=== PATIENT | male | born 1995 | race Caucasian/White ===

== ENCOUNTER 2017-10-28 08:36 | Emergency (ER) | payer OTHER ==
[2017-10-28] MEDS ORDERED: Ibuprofen TAB* 600 MG PO ONE (10:22)
--- NOTE | 2017-10-28 10:34 | UC ---
Throat Pain/Nasal Sourav HPI - HPI Summary HPI Summary: 1. ONSET OF ST, PAIN WITH SWALLOWING AND SWOLLEN LYMPH NODES YESTERDAY. PAIN RADIATES TO LEFT EAR. NO FEVER, NO COUGH OR CONGESTION. 2. LEFT WRIST PAIN THAT STARTED YESTERDAY WHILE TYPING. NO UNUSUAL ACTIVITY OR TRAUMA. 3. BOTTOM OF RIGHT FOOT HAS BEEN HURTING FOR ABOUT 3 DAYS. WORSE IN THE MORNING AND WITH WALKING. FEELS BETTER AFTER STRETCHING. HAS BEEN TAKING ACCUTANE FOR ABOUT 4 MONTHS. CALLED DERMATOLOGY AND WAS TOLD HIS SX WERE UNLIKELY DUE TO THIS MEDICATION. - History of Current Complaint Chief Complaint: UCRespiratory Stated Complaint: SORE THROAT, WRIST AND ANKLE PAIN Time Seen by Provider: 10/28/17 10:00 Hx Obtained From: Patient Onset/Duration: Sudden Onset, Lasting Days - 1 DAY, Still Present Severity: Moderate Pain Intensity: 6 Pain Scale Used: 0-10 Numeric Cough: None Associated Signs & Symptoms: Negative: Fever - Allergies/Home Medications Allergies/Adverse Reactions: Allergies Allergy/AdvReac Type Severity Reaction Status Date / Time No Known Allergies Allergy Verified 10/28/17 08:46 Home Medications: Home Medications Accutane 1 tab PO 10/28/17 [History] PMH/Surg Hx/FS Hx/Imm Hx - Additional Past Medical History Additional PMH: ACNE - Surgical History Surgical History: None - Family History Known Family History: Negative: Hypertension - Social History Alcohol Use: Weekly Substance Use Type: None Smoking Status (MU): Never Smoked Tobacco Review of Systems Constitutional: Negative ENT: Sore Throat, Ear Ache Respiratory: Negative Cardiovascular: Negative Gastrointestinal: Negative Musculoskeletal: Arthralgia, Decreased ROM - LEFT WRIST All Other Systems Reviewed And Are Negative: Yes Physical Exam Triage Information Reviewed: Yes Appearance: Well-Appearing, No Pain Distress, Well-Nourished Vital Signs: Initial Vital Signs Temp 98.1 F 10/28/17 08:41 Pulse 86 10/28/17 08:41 Resp 18 10/28/17 08:41 BP 111/71 10/28/17 08:41 Pulse Ox 99 10/28/17 08:41 Vital Signs Reviewed: Yes Eyes: Positive: Conjunctiva Clear ENT: Positive: Hearing grossly normal, Pharynx normal, TMs normal, Tonsillar swelling, Muffled voice. Negative: Tonsillar exudate Neck: Positive: Supple, Tenderness @ - SPFL CERVICAL LAD, Enlarged Nodes @ - SPFL CERVICAL LAD Respiratory Exam: Normal Cardiovascular Exam: Normal Abdomen Description: Positive: Soft Musculoskeletal: Positive: No Edema, ROM Limited @ - LEFT WRIST, Other: - LEFT WRIST ERYTHEMA AND TENDERNESS OVER ULNAR STYLOID PROCESS. WARM TO TOUCH. TTP RIGHT PLANTAR FASCIA Neurological: Positive: Alert Psychological: Positive: Age Appropriate Behavior Skin: Negative: rashes Diagnostics - Laboratory Diagnostic Studies Completed/Ordered: STREP NEG - Radiology LEFT WRIST XRAY Xray Interpretation: Positive (See Comments) - Ulnar aspect soft tissue swelling without additional finding. Potential etiologies would include extensor carpi ulnaris tendon pathology. Radiology Interpretation Completed By: Radiologist Throat Pain/Nasal Course/Dx - Differential Dx/Diagnosis Provider Diagnoses: 1. ACUTE PHARYNGITIS. 2. LEFT WRIST TENDONITIS. 3. RIGHT FOOT PLANTAR FASCIITIS Discharge - Sign-Out/Discharge Documenting (check all that apply): Discharge/Admit/Transfer - Discharge Plan Condition: Stable Disposition: HOME Prescriptions: Magic Mouth Was-LEONARDO/MAAL/LIDO* 5 - 10 ml SWISH SWAL QID PRN #150 ml PRN Reason: Sore Throat Patient Education Materials: Plantar Fasciitis Exercises (GEN), Pharyngitis (ED ), Plantar Fasciitis (ED), Tendinitis (ED) Referrals: [facility] - Audie DAVIDSON [Medical Doctor] - If Needed Luisa Hunt MD [Medical Doctor] - 1 Week Additional Instructions: STREP TEST TODAY NEGATIVE. LIKELY VIRAL ETIOLOGY OF YOUR SORE THROAT. REST, HYDRATE, OTC MEDS NEEDED FOR DISCOMFORT. RX FOR MAGIC MOUTHWASH PROVIDED TO HELP WITH DISCOMFORT. NO INDICATION FOR ANTIBIOTICS AT PRESENT. X-RAY OF YOUR LEFT WRIST SHOWS ULNAR ASPECT SOFT TISSUE SWELLING WITHOUT ADDITIONAL FINDING. POTENTIAL ETIOLOGIES WOULD INCLUDE EXTENSOR CARPI ULNARIS TENDON PATHOLOGY. WEAR THE SPLINT AT NIGHT AND DURING THE DAY ABLE. IF YOUR SYMPTOMS ARE NOT IMPROVING FOLLOW-UP WITH ORTHOPEDICS FOR FURTHER EVALUATION. [id number] ANTI-INFLAMMATORIES NEEDED FOR PAIN. FOR YOUR RIGHT FOOT PLANTAR FASCIITIS BE SURE TO STRETCH BEFORE AND AFTER WORKING OUT AND USE MASSAGE REGULARLY TO KEEP THE TISSUES FROM TIGHTENING UP. - Billing Disposition and Condition Condition: STABLE Disposition: HOME
[2017-10-28 10:48] VITALS: BP 117/45
--- NOTE | 2017-10-28 11:08 | RAD ---
INDICATION: Pain and redness at the LEFT ulnar styloid without proceeding injury. COMPARISON: No relevant prior exams available on the [facility] PACS for comparison. TECHNIQUE: AP, lateral, and oblique views LEFT wrist. REPORT: Normal articular alignment and preserved joint spaces. Negative for fracture or focal osseous lesion. Negative for osseous erosions. Mild soft tissue swelling superficial to the ulnar styloid. No subcutaneous emphysema or conspicuous foreign body. IMPRESSION: Ulnar aspect soft tissue swelling without additional finding. Potential etiologies would include extensor carpi ulnaris tendon pathology.
== END 2017-10-28 11:45 | disposition home or self-care (01) ==
LOC: UCEAST 08:36
DX: J02.9 Acute pharyngitis, unspecified (principal); M65.849 Other synovitis and tenosynovitis, unspecified hand; M72.2 Plantar fascial fibromatosis; L70.9 Acne, unspecified
CPT/HCPCS: 87651; 99213; A9270-GY; G0463

== ENCOUNTER 2017-10-29 08:32 | Emergency (ER) | payer OTHER ==
[2017-10-29 08:45] VITALS: BP 134/64
--- NOTE | 2017-10-29 09:32 | ED ---
Complex/Multi-Sys Presentation - HPI Summary HPI Summary: Pt. is a 22 y.o male who presents to the ER for numerous complaints that have been present x several days. Pt. was seen at urgent care yesterday for the same complaints. He presents to ER today because his symptoms are more constant. Pt. c/o a sore throat and nasal congestion. Denies fever, chills, cough, abd. pain, N/V/D. He also notes that he has been having pain to her left wrist and right foot x several days as well. He notes that he lifts and runs on a regular basis. He does not recall any injuries or falls. Pain is improved with motrin. Walking and using extremities makes symptoms worse. Rest makes symptoms better. He was given a velcro wrist splint yesterday and states that it is helping with pain. Foot pain is worse in the morning and when first walking. He denies recent rashes or tick bites. He otherwise denies past medical history. Symptoms are mild in severity. Negative strep test yesterday. - History Of Current Complaint Chief Complaint: EDGeneral Time Seen by Provider: 10/29/17 08:50 - Allergies/Home Medications Allergies/Adverse Reactions: Allergies Allergy/AdvReac Type Severity Reaction Status Date / Time No Known Allergies Allergy Verified 10/28/17 08:46 Home Medications: Home Medications Isotretinoin [Myorisan] 30 mg PO BID 10/29/17 [History Confirmed 10/29/17] PMH/Surg Hx/FS Hx/Imm Hx Previously Healthy: Yes Infectious Disease History: No Infectious Disease History: Denies: Traveled Outside the [place] in Last 30 Days - Family History Known Family History: Negative: Hypertension - Social History Occupation: Student Alcohol Use: Weekly Substance Use Type: Reports: None Smoking Status (MU): Never Smoked Tobacco Review of Systems Constitutional: Negative Negative: Fever, Chills Positive: Sore Throat, Nasal Discharge Cardiovascular: Negative Negative: Chest Pain Respiratory: Negative Negative: Shortness Of Breath, Cough Gastrointestinal: Negative Negative: Abdominal Pain, Vomiting, Diarrhea, Nausea Genitourinary: Negative Positive: Other - Left wrist pain, right foot pain. Skin: Negative Neurological: Negative All Other Systems Reviewed And Are Negative: Yes Physical Exam Triage Information Reviewed: Yes Vital Signs On Initial Exam: Initial Vitals Temp Pulse Resp BP Pulse Ox 99.1 F 82 15 134/64 100 0502/18 08:42 10/29/17 08:42 10/29/17 08:42 10/29/17 08:42 10/29/17 08:42 Vital Signs Reviewed: Yes Appearance: Positive: Well-Appearing - Pt. sitting on bed in NAD. Pleasant. Skin: Positive: Warm, Dry Head/Face: Positive: Normal Head/Face Inspection ENT: Positive: Other - Oropharynx is mildly injected with mild bilateral tonsillar edema. No exudates. Uvula is midline with no deviation. TMs are unremarkable bilaterally. Neck: Positive: Supple, Nontender, No Lymphadenopathy. Negative: Nuchal Rigidity Respiratory/Lung Sounds: Positive: Clear to Auscultation, Breath Sounds Present Cardiovascular: Positive: Normal, RRR Musculoskeletal: Positive: Other - Left arm and right leg are neurovascularly intact. No bony tenderness noted to the right foot. Pain to the urgent foot with dorsiflexion. No wounds, edema or ecchymosis. No proximal pain. Mild pain to left wrist with ROM. No edema or ecchymosis. Diagnostics - Vital Signs Vital Signs Temp Pulse Resp BP Pulse Ox 10/29/17 08:42 99.1 F 82 15 134/64 100 - Laboratory Lab Statement: Any lab studies that have been ordered have been reviewed, and results considered in the medical decision making process. Complex Multi-Symp Course/Dx Course Of Treatment: Pt. presenting to the ER for the above symptoms. He is afebrile and well appearing. Susptect viral etiology for pt.'s sore throat and sinus congestion. His left wrist pain is consistent with tendinitis, we'll have him continue wearing cockup splint. Right foot pain suspect plantar fasciitis. He has no bony tenderness on exam and no x-rays were obtained today. Pt. requesting splint for right foot. Post op shoe placed. Advised NSAIDS for pain. To ice and elevate. Activity as tolerated. To f.u with health center and return to ER if sxs change or worsen. Pt. understands and agrees with plan. - Diagnoses Differential Diagnoses/HQI/PQRI: Other - Tendinitis, sprain, pharyngitis, URI, viral syndrome Provider Diagnoses: Upper respiratory infection, Tendonitis, Achilles tendinitis Discharge - Sign-Out/Discharge Documenting (check all that apply): Discharge/Admit/Transfer - Discharge Plan Condition: Good Disposition: HOME Patient Education Materials: Plantar Fasciitis (ED), Upper Respiratory Infection (ED), Tendinitis (ED) Referrals: [facility] - Audie DAVIDSON [Primary Care Provider] - Additional Instructions: Follow up with the [facility] Ice and elevate Can take 800mg of Motrin every 8 hours x 1 week for pain Increase fluids and rest Return to ER if symptoms change or worsen - Billing Disposition and Condition Condition: GOOD Disposition: HOME
== END 2017-10-29 09:29 | disposition home or self-care (01) ==
LOC: ED 08:32
DX: J06.9 Acute upper respiratory infection, unspecified (principal); M76.61 Achilles tendinitis, right leg
CPT/HCPCS: 99282

== ENCOUNTER 2017-10-30 12:27 | Inpatient (IN) | payer OTHER ==
[2017-10-30] MEDS ORDERED: Morphine INJ* 10 MG/ML 1 ML CARPUJECT IV ONE (12:33)
[2017-10-30] MEDS ORDERED: Ondansetron INJ* 2 MG/ML VIAL IV ONE (12:34)
[2017-10-30] MEDS ORDERED: Ondansetron ODT TAB* 4 MG ONE (12:42)
[2017-10-30] MEDS ORDERED: Morphine VIAL* 4 MG/ML VIAL (1 ml vial) IV ONE (12:43)
[2017-10-30] MEDS ORDERED: Ammonia Inhalant* 1 EA AMP ONE (12:47)
[2017-10-30] MEDS ORDERED: Ondansetron ODT TAB* 4 MG PO ONE (12:54)
[2017-10-30 13:00] LABS: Hematocrit 40 % (42-52); Hemoglobin 13.7 g/dl (14.0-18.0); Mean Corpuscular HGB Conc 34 g/dl (31-36); Mean Corpuscular Hemoglobin 31 pg (27-31); Mean Corpuscular Volume 91 fL (80-94); Mean Platelet Volume 7.7 um3 (7.4-10.4); Platelet Count 264 10^3/ul (150-450); Red Blood Count 4.44 10^6/ul (4.0-5.4); Red Cell Distribution Width 13 % (10.5-15); White Blood Count 12.1 10^3/ul (3.5-10.8)
[2017-10-30] MEDS ORDERED: Ketorolac INJ* 30 MG/ML 1 ML VIAL IV PUSH ONE (13:08)
[2017-10-30] MEDS ORDERED: Lidocaine 1%* 5 ML VIAL ONE (13:13)
[2017-10-30 13:22] LABS: ABS Basophils 0.1 10^3/ul (0-0.2); ABS Eosinophils 0 10^3/ul (0-0.6); ABS Lymphocytes 1.9 10^3/ul (1.0-4.8); ABS Monocytes 1.7 10^3/ul (0-0.8); ABS Neutrophils 8.4 10^3/ul (1.5-7.7); ABS Nucleated RBC 0 10^3/ul; Eosinophil % 0.2 % (0-6); Lymphocyte % 15.8 % (25-47); Nucleated Red Blood Cells % 0
--- NOTE | 2017-10-30 15:40 | ED ---
Lower Extremity - HPI Summary HPI Summary: Patient is an otherwise healthy 22-year-old male presenting to the ED with chief complaint of right medial ankle pain. He states his symptoms began Friday evening after finishing work he endorsed medial ankle pain with chills. He states Friday he was able to walk, but was limping due to pain. He also endorses right neck pain without stiffness which has since dissipated. On Friday his symptoms worsened and he began to endorse left wrist pain and difficulty swallowing. He was seen at the urgent care and was tested for strep which was negative. On Friday, the following day he had worsening ankle pain with inability to bear weight but the wrist pain improved. Following day on Friday he endorses 10/10 pain and was seen in the ED. He was discharged home stating to elevate and ice it. He then went to [facility] several hours later due to worsening pain and they stated the same. Today he returns with 10 out of 10 pain, worst of life and is unable to bear weight. The area is slightly swollen, erythematous and warm to the medial ankle. History of bursitis to the right ankle 2 years ago which had improved with Aleve. He has been taking NSAIDs for the past 4 days without any relief of symptoms. History of GI infection 1 month ago. Low risk for STDs as he was tested one month ago and has had 1 partner since that time. Denies any tick bites or history of Lyme disease. Denies any history of STDs. Denies any family history of mono or polyarthritis or personal history of such. - History of Current Complaint Hx Obtained From: Patient Mechanism Of Injury: Other - no injury Onset of Pain: Immediate Onset/Duration: Days Severity Initially: Severe Severity Currently: Severe Pain Intensity: 10 Pain Scale Used: 0-10 Numeric Timing: Constant Location: Is Discrete @ - medial R ankle Associated Signs And Symptoms: Positive: Swelling, Redness Aggravating Factor(s): Standing, Ambulation Alleviating Factor(s): Rest Able to Bear Weight: No - Risk Factors Gout Risk Factors: Male DVT Risk Factors: Negative Septic Arthritis Risk Factor: Negative <Julissa Montes De Oca - Last Filed: 10/30/17 15:50> <Mark Marquis - Last Filed: 10/30/17 18:44> - History of Current Complaint Chief Complaint: EDExtremityLower Stated Complaint: RT FOOT PAIN Time Seen by Provider: 10/30/17 12:37 - Allergies/Home Medications Allergies/Adverse Reactions: Allergies Allergy/AdvReac Type Severity Reaction Status Date / Time No Known Allergies Allergy Verified 10/28/17 08:46 PMH/Surg Hx/FS Hx/Imm Hx Previously Healthy: Yes - Immunization History Hx Pertussis Vaccination: No Immunizations Up to Date: Unable to Obtain/Confirm Infectious Disease History: No Infectious Disease History: Denies: Traveled Outside the [place] in Last 30 Days - Family History Known Family History: Negative: Hypertension - Social History Occupation: Unemployed Lives: With Family Alcohol Use: Weekly Hx Substance Use: No Substance Use Type: Reports: None Hx Tobacco Use: No Smoking Status (MU): Never Smoked Tobacco <Julissa Montes De Oca - Last Filed: 10/30/17 15:50> Review of Systems Constitutional: Negative Negative: Fever, Chills, Fatigue, Skin Diaphoresis Eyes: Negative Cardiovascular: Negative Negative: Shortness Of Breath, Cough Negative: Abdominal Pain, Vomiting, Diarrhea, Nausea Genitourinary: Negative Positive: no symptoms reported, see HPI Positive: Arthralgia, Myalgia Positive: Other - erythema and warmth Neurological: Negative All Other Systems Reviewed And Are Negative: Yes <Julissa Montes De Oca - Last Filed: 10/30/17 15:50> Physical Exam Triage Information Reviewed: Yes Vital Signs On Initial Exam: Initial Vitals Temp Pulse Resp BP Pulse Ox 98.9 F 81 18 140/65 96 10/30/17 12:41 10/30/17 12:41 10/30/17 12:41 10/30/17 12:41 10/30/17 12:41 Vital Signs Reviewed: Yes Appearance: Positive: Well-Appearing, Well-Nourished Skin: Positive: Warm, Skin Color Reflects Adequate Perfusion, Other - erythema and warmth to the medial R ankle Head/Face: Positive: Normal Head/Face Inspection Neck: Positive: Supple, No Lymphadenopathy Respiratory/Lung Sounds: Positive: Clear to Auscultation, Breath Sounds Present Cardiovascular: Positive: Normal, RRR, Pulses are Symmetrical in both Upper and Lower Extremities Musculoskeletal: Positive: Limited @ - Plantarflexion and dorsiflexion d/t pain Neurological: Positive: Sensory/Motor Intact, Alert, Oriented to Person Place, Time, Speech Normal Psychiatric: Positive: Normal, Affect/Mood Appropriate AVPU Assessment: Alert <Julissa Montes De Oca Rm - Last Filed: 10/30/17 15:50> Vital Signs On Initial Exam: Initial Vitals Temp Pulse Resp BP Pulse Ox 98.9 F 81 18 140/65 96 10/30/17 12:41 10/30/17 12:41 10/30/17 12:41 10/30/17 12:41 10/30/17 12:41 <Mark Marquis - Last Filed: 10/30/17 18:44> Diagnostics - Vital Signs Vital Signs Temp Pulse Resp BP Pulse Ox 10/30/17 13:26 80 131/63 97 10/30/17 13:00 73 96 10/30/17 12:56 74 131/69 99 10/30/17 12:54 18 10/30/17 12:41 98.9 F 81 18 140/65 96 - Laboratory Lab Results: Lab Results 10/30/17 10/30/17 10/30/17 Range/Units 12:51 12:51 13:30 WBC 12.1 H (3.5-10.8) 10^3/ul RBC 4.44 (4.0-5.4) 10^6/ul Hgb 13.7 L (14.0-18.0) g/dl Hct 40 L (42-52) % MCV 91 (80-94) fL MCH 31 (27-31) pg MCHC 34 (31-36) g/dl RDW 13 (10.5-15) % Plt Count 264 (150-450) 10^3/ul MPV 7.7 (7.4-10.4) um3 Neut % (Auto) 69.5 (38-83) % Lymph % (Auto) 15.8 L (25-47) % [place] % (Auto) 13.7 H (0-7) % Eos % (Auto) 0.2 (0-6) % Baso % (Auto) 0.8 (0-2) % Absolute Neuts (auto) 8.4 H (1.5-7.7) 10^3/ul Absolute Lymphs (auto) 1.9 (1.0-4.8) 10^3/ul Absolute Monos (auto) 1.7 H (0-0.8) 10^3/ul Absolute Eos (auto) 0 (0-0.6) 10^3/ul Absolute Basos (auto) 0.1 (0-0.2) 10^3/ul Absolute Nucleated RBC 0 10^3/ul Nucleated RBC % 0 Sodium 139 (139-145) mmol/L Potassium 3.4 L (3.5-5.0) mmol/L Chloride 100 L (101-111) mmol/L Carbon Dioxide 29 (22-32) mmol/L Anion Gap 10 (2-11) mmol/L BUN 21 (6-24) mg/dL Creatinine 1.04 (0.67-1.17) mg/dL Est GFR ( Amer) 117.1 (>60) Est GFR (Non-Af Amer) 91.0 (>60) BUN/Creatinine Ratio 20.2 H (8-20) Glucose 95 (70-100) mg/dL Calcium 9.7 (8.6-10.3) mg/dL Total Bilirubin 0.40 (0.2-1.0) mg/dL AST 20 (13-39) U/L ALT 16 (7-52) U/L Alkaline Phosphatase 59 (34-104) U/L Total Protein 8.1 (6.4-8.9) g/dL Albumin 4.2 (3.2-5.2) g/dL Globulin 3.9 (2-4) g/dL Albumin/Globulin Ratio 1.1 (1-3) Fluid Source Synovial fluid Fluid Volume 4 mL Fluid Color Red Fluid Appearance Bloody Fluid WBC TNP Fluid RBC TNP Fluid Tot Cell Count 100 Fluid Neutrophils 94 % Fluid Lymphocytes 1 % Fluid Monocytes 5 % Fluid Cell Count Rvw By Pending Fluid Crystals (None Seen) Fluid Comment 10/30/17 Range/Units 13:30 WBC (3.5-10.8) 10^3/ul RBC (4.0-5.4) 10^6/ul Hgb (14.0-18.0) g/dl Hct (42-52) % MCV (80-94) fL MCH (27-31) pg MCHC (31-36) g/dl RDW (10.5-15) % Plt Count (150-450) 10^3/ul MPV (7.4-10.4) um3 Neut % (Auto) (38-83) % Lymph % (Auto) (25-47) % [place] % (Auto) (0-7) % Eos % (Auto) (0-6) % Baso % (Auto) (0-2) % Absolute Neuts (auto) (1.5-7.7) 10^3/ul Absolute Lymphs (auto) (1.0-4.8) 10^3/ul Absolute Monos (auto) (0-0.8) 10^3/ul Absolute Eos (auto) (0-0.6) 10^3/ul Absolute Basos (auto) (0-0.2) 10^3/ul Absolute Nucleated RBC 10^3/ul Nucleated RBC % Sodium (139-145) mmol/L Potassium (3.5-5.0) mmol/L Chloride (101-111) mmol/L Carbon Dioxide (22-32) mmol/L Anion Gap (2-11) mmol/L BUN (6-24) mg/dL Creatinine (0.67-1.17) mg/dL Est GFR ( Amer) (>60) Est GFR (Non-Af Amer) (>60) BUN/Creatinine Ratio (8-20) Glucose (70-100) mg/dL Calcium (8.6-10.3) mg/dL Total Bilirubin (0.2-1.0) mg/dL AST (13-39) U/L ALT (7-52) U/L Alkaline Phosphatase (34-104) U/L Total Protein (6.4-8.9) g/dL Albumin (3.2-5.2) g/dL Globulin (2-4) g/dL Albumin/Globulin Ratio (1-3) Fluid Source Fluid Volume mL Fluid Color Fluid Appearance Fluid WBC Fluid RBC Fluid Tot Cell Count Fluid Neutrophils % Fluid Lymphocytes % Fluid Monocytes % Fluid Cell Count Rvw By Fluid Crystals None seen (None Seen) Fluid Comment Result Diagrams: 10/30/17 12:51 10/30/17 12:51 Lab Statement: Any lab studies that have been ordered have been reviewed, and results considered in the medical decision making process. <Julissa Montes De Oca - Last Filed: 10/30/17 15:50> - Vital Signs Vital Signs Temp Pulse Resp BP Pulse Ox 10/30/17 18:15 18 10/30/17 17:00 86 100 10/30/17 16:56 92 121/59 100 10/30/17 16:26 82 122/64 99 10/30/17 16:00 74 98 10/30/17 15:57 72 110/65 98 10/30/17 15:26 88 123/66 97 10/30/17 15:00 82 97 10/30/17 14:56 88 117/67 97 10/30/17 14:27 93 98/61 98 10/30/17 14:00 79 100 10/30/17 13:57 75 148/52 99 10/30/17 13:26 80 131/63 97 10/30/17 13:00 73 96 10/30/17 12:56 74 131/69 99 10/30/17 12:54 18 10/30/17 12:41 98.9 F 81 18 140/65 96 - Laboratory Lab Results: Lab Results 10/30/17 10/30/17 10/30/17 Range/Units 12:51 12:51 13:30 WBC 12.1 H (3.5-10.8) 10^3/ul RBC 4.44 (4.0-5.4) 10^6/ul Hgb 13.7 L (14.0-18.0) g/dl Hct 40 L (42-52) % MCV 91 (80-94) fL MCH 31 (27-31) pg MCHC 34 (31-36) g/dl RDW 13 (10.5-15) % Plt Count 264 (150-450) 10^3/ul MPV 7.7 (7.4-10.4) um3 Neut % (Auto) 69.5 (38-83) % Lymph % (Auto) 15.8 L (25-47) % [place] % (Auto) 13.7 H (0-7) % Eos % (Auto) 0.2 (0-6) % Baso % (Auto) 0.8 (0-2) % Absolute Neuts (auto) 8.4 H (1.5-7.7) 10^3/ul Absolute Lymphs (auto) 1.9 (1.0-4.8) 10^3/ul Absolute Monos (auto) 1.7 H (0-0.8) 10^3/ul Absolute Eos (auto) 0 (0-0.6) 10^3/ul Absolute Basos (auto) 0.1 (0-0.2) 10^3/ul Absolute Nucleated RBC 0 10^3/ul Nucleated RBC % 0 ESR 71 H (0-14) mm/Hr Sodium 139 (139-145) mmol/L Potassium 3.4 L (3.5-5.0) mmol/L Chloride 100 L (101-111) mmol/L Carbon Dioxide 29 (22-32) mmol/L Anion Gap 10 (2-11) mmol/L BUN 21 (6-24) mg/dL Creatinine 1.04 (0.67-1.17) mg/dL Est GFR ( Amer) 117.1 (>60) Est GFR (Non-Af Amer) 91.0 (>60) BUN/Creatinine Ratio 20.2 H (8-20) Glucose 95 (70-100) mg/dL Calcium 9.7 (8.6-10.3) mg/dL Total Bilirubin 0.40 (0.2-1.0) mg/dL AST 20 (13-39) U/L ALT 16 (7-52) U/L Alkaline Phosphatase 59 (34-104) U/L C-Reactive Protein 179.65 H (< 5.00) mg/L Total Protein 8.1 (6.4-8.9) g/dL Albumin 4.2 (3.2-5.2) g/dL Globulin 3.9 (2-4) g/dL Albumin/Globulin Ratio 1.1 (1-3) Fluid Source Synovial fluid Fluid Volume 4 mL Fluid Color Red Fluid Appearance Bloody Fluid WBC TNP Fluid RBC TNP Fluid Tot Cell Count 100 Fluid Neutrophils 94 % Fluid Lymphocytes 1 % Fluid Monocytes 5 % Fluid Cell Count Rvw By Fluid Crystals (None Seen) Fluid Comment Group A Strep Rapid (Negative) 10/30/17 10/30/17 Range/Units 13:30 17:35 WBC (3.5-10.8) 10^3/ul RBC (4.0-5.4) 10^6/ul Hgb (14.0-18.0) g/dl Hct (42-52) % MCV (80-94) fL MCH (27-31) pg MCHC (31-36) g/dl RDW (10.5-15) % Plt Count (150-450) 10^3/ul MPV (7.4-10.4) um3 Neut % (Auto) (38-83) % Lymph % (Auto) (25-47) % [place] % (Auto) (0-7) % Eos % (Auto) (0-6) % Baso % (Auto) (0-2) % Absolute Neuts (auto) (1.5-7.7) 10^3/ul Absolute Lymphs (auto) (1.0-4.8) 10^3/ul Absolute Monos (auto) (0-0.8) 10^3/ul Absolute Eos (auto) (0-0.6) 10^3/ul Absolute Basos (auto) (0-0.2) 10^3/ul Absolute Nucleated RBC 10^3/ul Nucleated RBC % ESR (0-14) mm/Hr Sodium (139-145) mmol/L Potassium (3.5-5.0) mmol/L Chloride (101-111) mmol/L Carbon Dioxide (22-32) mmol/L Anion Gap (2-11) mmol/L BUN (6-24) mg/dL Creatinine (0.67-1.17) mg/dL Est GFR ( Amer) (>60) Est GFR (Non-Af Amer) (>60) BUN/Creatinine Ratio (8-20) Glucose (70-100) mg/dL Calcium (8.6-10.3) mg/dL Total Bilirubin (0.2-1.0) mg/dL AST (13-39) U/L ALT (7-52) U/L Alkaline Phosphatase (34-104) U/L C-Reactive Protein (< 5.00) mg/L Total Protein (6.4-8.9) g/dL Albumin (3.2-5.2) g/dL Globulin (2-4) g/dL Albumin/Globulin Ratio (1-3) Fluid Source Fluid Volume mL Fluid Color Fluid Appearance Fluid WBC Fluid RBC Fluid Tot Cell Count Fluid Neutrophils % Fluid Lymphocytes % Fluid Monocytes % Fluid Cell Count Rvw By Fluid Crystals None seen (None Seen) Fluid Comment Group A Strep Rapid Negative (Negative) Result Diagrams: 10/30/17 12:51 10/30/17 12:51 Lab Statement: Any lab studies that have been ordered have been reviewed, and results considered in the medical decision making process. <Mark Marquis - Last Filed: 10/30/17 18:44> Lower Extremity Course/Dx - Course Course Of Treatment: During the course of treatment, the patient is evaluated for right ankle pain, left wrist pain and difficulty swallowing. He states the swallowing and left wrist pain improved yesterday, but endorses tentative 10 pain to the right medial ankle. He is unable to bear weight. The area is erythematous with warmth and swelling. Labs obtained including ERNIE, Lyme, GC chlamydia. He remains afebrile. Blood cultures are obtained. The right ankle joint was tapped and sent to lab for cell count, white count assessing for septic joint. Lab states they were unable to perform cell count due to coagulation. White count is 12.1. Synovial fluid shows 94% neutrophils. Patient has improved somewhat with 5 mg morphine and 30 mg Toradol. Continues to be unable to bear weight. <Julisas Montes De Oca - Last Filed: 10/30/17 15:50> <Mark Marquis - Last Filed: 10/30/17 18:44> - Diagnoses Provider Diagnoses: Polyarthralgia Discharge <Julissa Montes De Oca - Last Filed: 10/30/17 15:50> - Sign-Out/Discharge Documenting (check all that apply): Discharge/Admit/Transfer - Billing Disposition and Condition Condition: FAIR Disposition: [facility] [place] <Mark Marquis - Last Filed: 10/30/17 18:44> - Discharge Plan Condition: Fair Disposition: ADMITTED TO [facility] Referrals: [facility] [place] - Audie DAVIDSON [Primary Care Provider] -
[2017-10-30] MEDS ORDERED: DOXYcycline IV* 100 MG in NS 0.9% 250 ML* 250 ML IVPB ONE ×2 (15:49→17:52)
--- NOTE | 2017-10-30 17:42 | UC ---
- Progress Note Progress Note: I supervised the PA and performed a Hx and PE on this patient. Hx: R ankle, L wrist pain and swelling for several days. Several medical contacts without improvement. No high risk sexual activity. 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 PE: R ankle effusion with warmth and tenderness. Min tenderness L wrist. No rash. Plan: Tap joint. Test Lyme. Ortho c/s -- to see in ED. Admit if needed. Arthrocentesis: Re: Joint effusion, pain. Assist: AICHA Mauricio Desc: Pt consented. Chloroprep to skin. Full sterile drape. Lidocaine 1% 1cc to anterior R ankle. Accessed joint with 18g needle. Return blood tinged synovial fluid, approx 5-6cc fluid. 1cc Lidocaine 1% into joint space. Pain improved. Recleaned skin. Band-aid to site. Tolerated well without complications. Course/Dx - Course Course Of Treatment: Dr. Hunt came and saw in the ER. An MRI scan is pending for 7:30 PM tonight. We are concerned that this patient most likely has Lyme arthritis. Hospitalist to admit. IV doxycycline was provided. - Provider Notifications Discussed Care Of Patient With: Bernabe Hardwick - will admit - Critical Care Time Critical Care Time: 30-74 min - Critical care time is exclusive of separately billable procedures Discharge - Sign-Out/Discharge Documenting (check all that apply): Discharge/Admit/Transfer - Discharge Plan Condition: Fair Disposition: ADMITTED TO [facility] Referrals: [facility] - Audie DAVIDSON [Primary Care Provider] - - Billing Disposition and Condition Condition: FAIR Disposition: [facility] [place]
[2017-10-30] MEDS ORDERED: HYDROmorphone INJ* 2 MG/ML CARPUJECT SYRINGE IV SLOW PU ONE (17:52)
[2017-10-30] MEDS ORDERED: Acetaminophen TAB* 325 MG PO PRN (19:18)
[2017-10-30] MEDS ORDERED: Potassium Chlor TAB* 20 MEQ TAB.ER PO ONE (19:30)
[2017-10-30] MEDS ORDERED: DOXYcycline IV* 100 MG in NS 0.9% 250 ML* 250 ML IVPB SCH (20:00)
[2017-10-30] MEDS ORDERED: Gadoteridol* (CONTRAST) 279.3 MG/ML 10 ML IV ONE (20:00)
[2017-10-30] MEDS: oxyCODONE/Acetamin 5/325 MG* TAB PO PRN (20:25)
[2017-10-30] MEDS: cefTRIAXone(*) 2 GM in NS 0.9% 100 ML* 100 ML IVPB SCH (20:31)
--- NOTE | 2017-10-30 20:57 | CONS ---
ORTHOPEDIC CONSULTATION NOTE: DATE OF CONSULT: 10/30/17 CHIEF COMPLAINT: Right ankle pain, left wrist pain. HISTORY OF PRESENT ILLNESS: Mr. Melendez is a 22-year-old [employer] student who reports 4 days of right ankle and left wrist pain. The patient's right ankle became swollen and red. Over the last 4 days, he has about 10/10 pain in the right ankle with inability to bear weight and move the ankle. He also has had some left wrist pain and swelling which he states has resolved on its own. He is an active outdoorsman and runner, but denies a recent trauma. He has been to urgent care, [facility] as well as the emergency department here twice. He has no definite tick exposure recently. No high risk sexual activity. The patient reports no recent abrasions or wounds around the right ankle. He reports no recent infection, although over a month ago he was on antibiotics for a GI infection. PAST MEDICAL HISTORY: None. PAST SURGICAL HISTORY: None. MEDICATIONS: Home drug medication list, none. ALLERGIES: No known drug allergies. FAMILY HISTORY: None. SOCIAL HISTORY: The patient is a [employer] student. He is very active and exercises regularly. No tobacco. Minimal alcohol use, minimal marijuana use. Normally ambulates independently. He is a runner. Up-to-date immunizations. REVIEW OF SYSTEMS: Positive for right ankle pain, left wrist pain. Negative for fevers, chills, chest pain, shortness of breath, nausea, vomiting, headache or dizziness. Otherwise, the patient reports review of systems is negative or not relevant. Positive recent sore throat. PHYSICAL EXAM: Vitals: Temperature 98.9, pulse of 81, blood pressure 140/65. General: The patient is a thin male in no apparent distress. Alert and oriented x3. Pleasant mood and appropriate affect. Gait is not assessed. Left Upper Extremity: The patient's skin is intact. No abrasions or open wounds. No swelling. No erythema. 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 Right Lower Extremity: The patient's skin is intact. He has an aspiration puncture wound along the anterior ankle joint. He has a mild to moderate effusion at the ankle. Some erythema along the medial malleolar region. No specific bony tenderness to palpation. Although he can flex and extend his great toe, he refuses to dorsiflex or plantarflex because of pain. He reports intact sensation to light touch in all nerve distributions and has 2+ palpable DP pulse. DIAGNOSTIC STUDIES/LAB DATA: Radiographs: By report, the patient had x-rays at [employer] of the right ankle, which were negative for any abnormality and MRI of the right ankle is pending. Studies: Emergency department physician, Dr. Marquis did aspirate the ankle joint and felt that he obtained some blood tinged joint fluid which was not purulent. He felt that he had adequate specimen for cultures and sensitivities. White blood cell count was not obtained because of clotting. Gram Stain is negative. MRSA and staph aureus initial are negative. The rest of the cultures are pending. Laboratory studies show white blood cells elevated at 12.1 with no left shift, hematocrit 40, ESR 71, CRP 179, potassium 3.4, sodium 139, chloride 100, BUN and creatinine 21 and 1.04. Group A rapid strep is negative. ASSESSMENT AND PLAN: Mr. Melendez is a 22-year-old [employer] student with 4 days of multiple arthralgias and swelling of his joints. He has left resolved wrist pain. Now, he has an effusion at the right ankle with painful motion. He does have leukocytosis and elevated CRP, ESR. The appropriate aspiration of the ankle joint has been performed. It is possible this is Lyme disease. I cannot exclude a bacterial infection and of course, I will be watching the cultures carefully. I have requested an MRI of the right ankle. We will follow the MRI and decide on admission to the hospitalist service. Orthopedics will gladly follow along. I will discuss an open I and D of the right ankle with the patient if the MRI indicates likely infection. [id number]/[facility] #: [id number] [facility]
[2017-10-30] MEDS: HYDROmorphone INJ* 2 MG/ML CARPUJECT SYRINGE IV SLOW PU PRN (21:11)
[2017-10-30] MEDS: Heparin VIAL(*) 5000 UNITS/ML VIAL (FIVE THOUSAND) SUBCUT SCH (21:12)
--- NOTE | 2017-10-30 21:57 | HP ---
CC: [facility]; Dr. Elkins; Dr. Hunt; Dr. Peña * HISTORY OF PRESENT ILLNESS: DATE OF ADMISSION: 10/30/17 PRIMARY CARE PROVIDER: [facility]. ATTENDING PHYSICIAN WHILE IN THE HOSPITAL: Luz Marina Moore DO * (report dictated by Jono Pierce NP) CONSULTING AIR BOX TESTER: Dr. Elkins. CONSULTING ORTHOPEDIST: Dr. Hunt. CONSULTING ID SPECIALIST: Dr. Peña. CHIEF COMPLAINT: Right ankle pain. HISTORY OF PRESENT ILLNESS: Mr. Melendez is a 22-year-old male patient, previously healthy except he is taking Accutane for acne. He comes in to the ER today. He states he noticed last Friday, he had a pretty heavy workout session on the 10/25/18, he lifted weights, did legs, ran 5 miles. Shortly thereafter in the next couple days, he noticed that his left wrist was really sore. He had a little bit of redness on the medial aspect of his wrist just at the base of the thumb running along the radius. He states that alicia chavez had 8/10 pain there. He thought may be it was from him overdoing at the gym. It eventually went away, but he also had associated, he said one of lymph nodes felt swollen, particularly in his neck on his left side, which is now he says has gone. He had some trouble swallowing because of the swelling. He had no sore throat. No fevers. No cough. No URI-type symptoms. He then noticed over the last couple days, he has had progressive worsening pain in his right ankle. His pain in the wrist and the pain in the neck are both gone. He never had a headache. He never had any documented fever. He did feel chilled. He had no nausea, vomiting. No diarrhea. No dysuria. No abdominal pain. He states he has had bursitis previously 2 years ago in his ankle, which resolved with NSAIDs. He has never had issues with joint pains, joint stiffness in the morning. He states that to his knowledge, he has not been exposed to anything outdoors Lyme related, but he is unsure. He has not noticed any rashes with the exception in the last couple days that his right ankle has become swollen, painful. He has difficulty with pain, difficulty moving the joint with inversion or eversion, dorsi or plantar flexion, it is exquisitely painful to him. The pain was 10/10. He has been evaluated at [facility] and also urgent care. It was felt that according to the patient he had plantar fasciitis. He was discharged with pain management. However, the pain today was just much more severe, particularly in the ankle. The wrist pain and the adenopathy had gone away. He denied having any ear pain, ear discharge. Again , no URI-type symptoms, but he came in, was evaluated. He was noted to have elevated CRP, ESR. His white count was up. There was concern for septic arthritis, possible inflammatory arthritis; it was unclear at this point and we were asked to evaluate for admission. PAST MEDICAL HISTORY: Significant for acne and bursitis to his right ankle previously. PAST SURGICAL HISTORY: Denied. MEDICATIONS: Home medications include Accutane 30 mg p.o. daily, which he did stop on Friday. ALLERGIES TO MEDICATIONS: Include PENICILLIN. FAMILY HISTORY: He states both of his parents are healthy. SOCIAL HISTORY: He does not smoke. He drinks may be twice a month. 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 Surrogate decision makers are his parents. REVIEW OF SYSTEMS: There is no documented fever. He denies any significant weight change. There is no double vision. He denies having any ear discharge. There is no rhinorrhea. There is no sore throat. No thyroid enlargement. He denied having any chest pain. There is no orthopnea. He denies having any nocturnal dyspnea. There was no abdominal pain. There is no dysuria, no frequency. There was no seizure, no loss of consciousness. No pruritus and no skin ulcerations. Review of 14 systems completed, all others negative. PHYSICAL EXAMINATION His physical examination reveals: GENERAL: At this time, Mr. Melendez is a 22-year-old male patient. He is well nourished, well developed. He is sitting in the ED stretcher. He does not appear to be in any acute distress. VITAL SIGNS: Blood pressure 119/57, pulse 87, respirations 18, O2 sat 98%, temperature 98.9. HEENT: Head: Atraumatic, normocephalic. Eyes: EOMs are intact. Sclerae anicteric and not pale. Throat: Oral mucosa appears to be moist. No oropharyngeal erythema. NECK: Supple. LUNGS: Clear to auscultation bilaterally. No wheezes, rales, or rhonchi. HEART: Sounds S1, S2. Regular rate and rhythm. No murmurs, rubs, or gallops. ABDOMEN: Soft. It was flat. It was nontender. EXTREMITIES: Pulses were 2+ throughout. He did have edema noted to the right lower extremity. He had sensation and 2+ pulse. He had erythema to the medial aspect of that right ankle. It was tender there with eversion, inversion, or plantar and dorsiflexion. He has pain with any type of movement to the joint. It was stiff. NEUROLOGICAL: He is awake, alert, oriented x3. Tongue midline. President Ceo & Founder were equal. He had no gross focal deficits. SKIN: Intact. LABORATORY DATA/DIAGNOSTIC STUDIES: Labs today WBC 12.1, RBC of 4.44, hemoglobin of 13.7, hematocrit of 40, platelet count of 264. His ESR was 71. The sodium was 139, his potassium is 3.4, chloride is 100, bicarb 29, BUN 21, creatinine 1.04, his glucose was 95. Calcium 9.7. Total bili 0.4, AST 20, ALT 16, alk phos 59. CRP 179. Albumin 4.2. He did have a synovial fluid analysis , which showed total cell count of 100, he had 94 neutrophils were noted in that. Unfortunately, they could not perform WBC, RBC count because there were clots in the sample. Serology was negative for strep. He had an MRI that is pending of the ankle, which will be done; he is going for that now. He had a wrist x-ray done 2 days ago, which showed ulnar aspect soft tissue swelling without additional finding. Potential etiologies include extensor carpi ulnaris tendon pathology. Old medical records were reviewed. ASSESSMENT AND PLAN: Mr. Melendez is a 22-year-old male patient, healthy individual coming in to the ED today with several complaints. He had left wrist pain. He also had swelling. He said he had adenopathy, which I cannot appreciate now. In addition to this, he is also having right ankle discomfort and pain and erythema. He came in to the ED today. He was evaluated. He was evaluated here in the ED. There was concern because of the inflammatory versus infectious arthritis. We were asked to evaluate for admission. He will be admitted under inpatient status for: 1. Right ankle arthritis. Again, he either has inflammatory or infectious arthritis. Cultures are pending on this sample that was sent by Dr. Marquis. I do have calls up with Dr. Elkins and Dr. Peña to help us to navigate this. I did check ERNIE, rheumatoid factor all sent by the ER. Serology for Lyme was also sent. He is on doxycycline empirically. At this point again, we will await cultures. He is getting an MRI later tonight of that ankle. We will get neurovascular checks on that every shift and we will hydrate him and we will continue to follow. Again, I am waiting for further recommendations from Rheumatology and possibly from Infectious Disease. I have ordered pain medications for pain control. Blood cultures have been sent. We will await cultures. GC, Chlamydia was sent as well and we will continue to monitor. 2. History of acne. We are holding the Accutane in the setting of acute illness. 3. DVT prophylaxis. He will be placed on SCDs. 4. Code status. Full code. 5. Fluids, electrolytes, and nutrition. He can have a regular diet. TIME SPENT: On the admission 60 minutes, greater than half of the time spent face- to-face with the patient obtaining my history and physical, the other half of the time was spent going over the plan of care with the patient and implementing the plan of care. I did discuss the plan of care with my attending, Dr. Moore; she is in agreement. JONO PIERCE, KAILEE [id number]/[facility] #: [id number] [facility]
[2017-10-30] MEDS: NS 0.9% 1000 ML* 1,000 ML IV SCH (23:27)
[2017-10-31] MEDS: HYDROmorphone INJ* 2 MG/ML CARPUJECT SYRINGE IV SLOW PU PRN (02:28)
[2017-10-31] MEDS: Heparin VIAL(*) 5000 UNITS/ML VIAL (FIVE THOUSAND) SUBCUT SCH ×3 (05:53→21:22)
[2017-10-31] MEDS: oxyCODONE/Acetamin 5/325 MG* TAB PO PRN ×4 (05:54→23:03)
[2017-10-31 06:31] LABS: ABS Basophils 0 10^3/ul (0-0.2); ABS Eosinophils 0.1 10^3/ul (0-0.6); ABS Lymphocytes 2.5 10^3/ul (1.0-4.8); ABS Monocytes 1.5 10^3/ul (0-0.8); ABS Neutrophils 5.7 10^3/ul (1.5-7.7); ABS Nucleated RBC 0 10^3/ul; Eosinophil % 0.8 % (0-6); Hematocrit 36 % (42-52); Hemoglobin 12.2 g/dl (14.0-18.0); Lymphocyte % 25.3 % (25-47); Mean Corpuscular HGB Conc 35 g/dl (31-36); Mean Corpuscular Hemoglobin 31 pg (27-31); Mean Corpuscular Volume 91 fL (80-94); Mean Platelet Volume 7.8 um3 (7.4-10.4); Nucleated Red Blood Cells % 0; Platelet Count 244 10^3/ul (150-450); Red Blood Count 3.91 10^6/ul (4.0-5.4); Red Cell Distribution Width 12 % (10.5-15); White Blood Count 9.9 10^3/ul (3.5-10.8)
[2017-10-31 06:45] LABS: EGFR Non-African American 111.9 (>60)
[2017-10-31] MEDS: NS 0.9% 1000 ML* 1,000 ML IV SCH (07:34)
--- NOTE | 2017-10-31 07:54 | RAD ---
Indication: RIGHT ankle pain, erythema, and elevated inflammatory markers. Reported large volume thoracentesis from the ankle joint prior to the MRI exam. Cultures pending. Comparison: No relevant prior exams available on the [facility] [place] for comparison. Technique: Pre and postcontrast MRI RIGHT ankle. The distal margin of the [id number] is at the level of the metatarsal diaphyses. 14 mL ProHance administered IV. Report: Normal bone marrow signal throughout the [id number]. Normal articular alignment. Small talocrural and small posterior subtalar joint effusions. Large volume of fluid within the flexor hallucis longus tendon sheath both at the level of the talocrural joint and extending distally to the knot of Dc subjacent to the mid foot. At the mid foot the FHL tendon appears thickened and intermediate in signal. Mild interstitial edema at the distal FHL muscle. Small volume of fluid present in the flexor digitorum longus tendon sheath. Diffuse subcutaneous edema. The postcontrast series demonstrate synovial enhancement most prominent at the posterior joint recesses of the talocrural and subtalar joints as well as the FHL tendon sheath. IMPRESSION: The constellation of findings given the clinical context is most consistent with septic arthritis involving the talocrural and subtalar joints as well as septic tenosynovitis primarily involving the FHL tendon. No bone marrow edema to indicate osteomyelitis at this time. Results discussed with AICHA Pierce and Dr. Hunt by telephone at approximate 2030 hours October 30, 2017.
--- NOTE | 2017-10-31 08:39 | CONSULT ---
Consult Consult: Mr. Melendez is a 22 year old man with an oligoarticular inflammatory process now involving his right ankle. It may have been preceded by an upper respiratory infection. Would follow up cultures. His ankle remains swollen today; he may need an I&D and synovial biopsy to eval for infection. Would continue cephalosporin and Doxycycline. Agree with getting an ID evaluation. Will follow up RF and connective tissue panel although his overall picture suggests either a reactive arthritis or infection, such as GC related arthropathy
[2017-10-31] MEDS ORDERED: Pneumococcal *Vac Polyvalent 0.5 ML VIAL IM ONE (09:00)
[2017-10-31] MEDS ORDERED: EPINEPHRINE 1 MG/ML 1 ML VIAL ONE (09:54)
[2017-10-31] MEDS ORDERED: Clindamycin 900 MG IVPREMIX(* 900 MG/50 ML SDV IV ONE (10:08)
--- NOTE | 2017-10-31 10:25 | PN ---
Progress Note - Progress Note Date of Service: 10/31/17 SOAP: Subjective: Spoke with Dr. Hunt this morning about this patient. Met patient on floor. Healthy college student, sexually active, no history of GC infection, who presents with some ankle aching then 3-4 days of increasing pain and inability to ambulate without any antecedent trauma. Has been seen by rheum who diagnosed infection or reactive arthropathy R ankle. Requested synovial biopsy. Rheum labs pending. On IV abx. Ceftriaxone, since last night so exam in that context. Objective: Non-toxic appearing RLE - Swelling and erythema about ankle, more medial than lateral - Ankle PROM 5-25 plantarflexion. Mild discomfort within that range, much pain at endpoints of that restricted range - Severe pain with any PROM of great toe IP joint - TTP posterior tibiotalar joint as well as mild anterior - NVID Reviewed MRI and discussed with [place]. Much fluid about the FHL tendon at level of posterior ankle. Much surrounding edema subcutaneous. Consistent with infection. Also some degeneration and fluid distal about knot of Dc but no clear partial or full thickness tear. Some increase in fluid in tibiotalar and subtalar joints. Microbiology 10/30/17 13:30 Body Fluid - Ankle Right Gram Stain - Final 10/30/17 13:30 Body Fluid - Ankle Right Skin and Soft Tissue MRSA/MSSA (PCR - Final Mrsa Negative S.aureus Negative Selected Entries 10/31/17 10/31/17 04:56 07:29 Temperature 98.1 F 99.0 F Pulse Rate 78 Respiratory 16 Rate Blood Pressure 112/59 (mmHg) O2 Sat by Pulse 100 Oximetry Laboratory Tests 10/30/17 10/30/17 10/30/17 12:51 12:51 13:30 WBC 12.1 H Neut % (Auto) 69.5 ESR 71 H C-Reactive Protein 179.65 H Fluid Neutrophils 94 Fluid Crystals Group A Strep Rapid 10/30/17 10/30/17 10/31/17 13:30 17:35 06:13 WBC 9.9 Neut % (Auto) 57.8 ESR C-Reactive Protein Fluid Neutrophils Fluid Crystals None seen Group A Strep Rapid Negative Assessment: Severe right FHL tendon tenosynivitis, likely infectious Likely infection right ankle tibiotalar and subtalar joints Plan: - to OR for I&D. Arthroscopic versus open. FHL tendon sheath, tibiotalar, subtalar joints. May convert to open as needed. We will obtain cultures. May obtain synovial biopsy. - Patient NPO, consented. Discussed krys, potential complications.
[2017-10-31] MEDS ORDERED: Lidocaine 1% MPF wEPI 200,000* 30 ML SDV ONE (10:26)
[2017-10-31] MEDS ORDERED: Midazolam* 1 MG/ML 2 ML VIAL (2 MG) ONE (11:13)
[2017-10-31] MEDS ORDERED: fentaNYL* 50 MCG/ML 2 ML VIAL (100 MCG VIAL) ONE ×3 (11:13→14:50)
[2017-10-31] MEDS ORDERED: Propofol* 10 MG/ML 20 ML BTL IV PUSH ONE (11:13)
[2017-10-31] MEDS ORDERED: Succinylcholine* 20 MG/ML 10 ML VIAL ONE (11:18)
[2017-10-31] MEDS ORDERED: Sodium Citrate/Citric Acid* 15 ML UDC ONE (11:28)
--- NOTE | 2017-10-31 12:56 | CONS ---
CONSULTATION REPORT: DATE OF CONSULT: 10/31/17 CONSULTING PROVIDER: Jono Pierce NP REASON FOR CONSULT: Evaluate for cause of arthritis. CHIEF COMPLAINT: Ankle swelling. 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 His only prior medical history includes acne , for which he had been on Accutane. He does recall that he had a sore throat several days ago and s ome discomfort in the upper throat muscles and prior to that several weeks ago, he had had a GI illne ss, for which he took antibiotics; this was self-limited. He had felt well until after a heavy worko ut in late September after he did both weights and he ran several miles. Thereafter, he noted that there was some discomfort in his left wrist. He also noted some swelling and redness of the wrist along th e base of the thumb. It was a significant amount of pain at that time and he thought initially it ma y have been from overuse of gym activities. At that time, he also had some swelling of his lymph nod es especially on the side of the neck, which now has gone away. Though he has no sore throat now, he did have an initial sore throat several days ago. He denies any fever or cough and no upper respira tory-type symptoms. Most significantly, he had noted over the past couple of days progressive discom fort and swelling of the right ankle. While the pain in the wrist as well as the pain in the upper n tanja and throat musculature improved, now has pain and swelling of right ankle, which has continued to day despite an aspiration last night in the ER. He did have some chills but no fever and no nausea o r vomiting or diarrhea despite a recent history of a GI illness. He has had no dysuria. He denies a ny abdominal pain. He does state that he may have had some bursitis about 2 years ago in his ankle, which resolved with anti-inflammatory medications but other than that, he has had no joint issues, no joint pain or stiffness. He does not recall any recent tick bites but he is very active in the outd oors. He denies any rashes except for redness over the right ankle. The pain has continued today, s o it is still difficult to mobilize the ankle and has been quite severe at times. He had been evalua demar at [facility] in the urgent care center. He did state that about 2 months ago, he had a complete STD screen and an HIV test was negative. However, he does, per history, have some history of sexual activity, possibly unprotected. He currently denies any other risk factors and he denies any ear pain or ear discharge. He has no upper respiratory infection. In the ER, he was found to puckett ve an elevated CRP and sedimentation rate. He also had leukocytosis and aspiration of the fluid reve aled no acute infection, but he did have increased cells. Per my discussion with Jono Pierce NP, last night, he was placed on doxycycline as well as a cephalosporin and Infectious Disease has also b meagan consulted. PAST MEDICAL HISTORY: Includes only acne as well as the possible tendinitis to his right ankle in past, but he has no history of enthesopathy. PAST SURGICAL HISTORY: No past surgical history. MEDICATIONS: At home, include Accutane 30 mg daily, which he has on hold at this point. ALLERGIES TO MEDICATIONS: Include PENICILLIN. FAMILY HISTORY: His parents are both healthy. There is an aunt with possible lupus. SOCIAL HISTORY: He does not smoke. He drinks alcohol occasionally, only about twice a month. 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 There is a history of possible unprotected sex. REVIEW OF SYSTEMS: General: No fever. Denies any other constitutional symptoms. No weight changes. ENT: No vision changes. No red or painful eyes. He has had no discharge from eyes or ears and no rhinorrhea. He has no sore throat, although he did have some discomfort a couple of days ago. Endo crine: No glandular swelling, no thyromegaly. Cardiac: Denies chest wall pain. No orthopnea. Pulm onary: Denies shortness of breath. : Denies blood in the urine or stool currently. Denies abdom inal pain. There is no dysuria or frequency. Neurologic: No history of seizure or weakness. No montrell h, no skin ulcerations, or dermatitis. He does have acne. Musculoskeletal: As noted above. Other 1 4-point review of systems was reviewed and otherwise negative. PHYSICAL EXAM: He is a pleasant male, well nourished, not in acute distress, although he does appear to be in discomfort whenever he moves his ankle in any way. Blood pressure in the ER was 119/57, pul se of 87, respiratory rate of 18, O2 sat is 98%, temperature of 98.9. He is pleasant and lying supin e. HEENT: Normocephalic, atraumatic. Pupils are equal, round, and reactive to light and accommodat e. Oral mucosa appeared to be moist. Throat: No oropharyngeal erythema. Neck was supple. Lymph: No adenopathy. Lungs were clear to auscultation bilaterally. No wheezes, rales, or rhonchi. Cardio vascular Exam: Revealed a regular rate and rhythm. Normal S1 and S2. No S3 or S4. No murmurs, rubs, or gallops. Abdomen: Soft, nontender, and nondistended. Positive bowel sounds with no organomegal y. Extremities: Pulses were 2+ in lower extremities. On musculoskeletal exam, he had some swelling around the ankle in a circumferential pattern. There was some significant tenderness especially mahsa g the medial aspect of the right ankle and he did have synovitis 2 to 3+, which significantly limited any range of motion of the ankle itself. The synovitis did not extend to the Achilles region, but i t did extend to the mid part of the foot and to the lateral aspect as well too. His knee exam, [facility] er, was normal and he had good range of motion of the hips as well as the hands and wrists and should ers. Neurologic: Nonfocal. Motor strength 5/5 in upper and lower extremities. He was a little bit impaired in terms of mobilizing the right lower extremity simply due to the right ankle synovitis. Skin: No rash. : No CVA tenderness. Endocrine: No glandular swelling. DIAGNOSTIC STUDIES/LAB DATA: He had a white count of 12.1, hemoglobin of 13.7, platelet count of 264 ,000, sed rate of 71. Sodium was 139, his potassium was 3.4, chloride was 100, BUN 21, creatinine 1. 04, his glucose was 95, calcium was 9.7. Total bilirubin 0.4, AST of 20, ALT of 16, alk phos of 59. CRP of 179. Albumin of 4.2. He did have a synovial fluid analysis, which showed a total cell count of 100 with 94 neutrophils not ed. Serology was negative for strep. An MRI of his ankle is pending. He had a wrist x-ray done 2 days prior to admission, which showed ulnar aspect soft tissue swelling w ithout additional findings. ASSESSMENT AND PLAN: Mr. Melendez is a 22-year-old male with prior good health, but who now presents wi th an oligoarticular inflammatory arthritis, now primarily involving the right ankle. He also of not e has markedly elevated inflammatory markers especially C-reactive protein. Historically, it is of i nterest that he had some possible upper respiratory symptoms several days ago and about a month ago h ad a gastrointestinal illness. He is at risk for reactive arthritis and this is possible that he may have. I would also consider GC or chlamydia type of inflammatory arthritis and I agree with checkin loyda for this. He is agreeable to check another HIV test. I would also check some autoimmune markers e specially in light of his family history including an HLA-B27 given his history of history of a gastr ointestinal illness. Given his family history of possible lupus, I will check a connective tissue pa jenny as well as rheumatoid factor, although this is atypical presentation of rheumatoid arthritis, as it is very sudden in onset and is asymmetric. He may require an I and D and synovial biopsy of his r ight ankle if symptoms persist. At present, he is on ceftriaxone, which would cover gonorrhea and I would tend to agree with continuing doxycycline, although I will defer this to Infectious Disease. W scott will continue to follow daily for improvement. [id number]/[facility] #: [id number]
[2017-10-31] MEDS ORDERED: Naloxone* 0.4 MG/ML 1 ML VIAL IV PRN (13:19)
[2017-10-31] MEDS ORDERED: Magnesium Hydroxide LIQ* 30 ML UDC PO PRN (13:57)
[2017-10-31] MEDS: fentaNYL* 50 MCG/ML 2 ML VIAL (100 MCG VIAL) IV PRN ×3 (14:00→14:51)
[2017-10-31] MEDS ORDERED: oxyCODONE/Acetamin 5/325 MG* TAB ONE (14:53)
[2017-10-31] MEDS: Morphine VIAL* 4 MG/ML VIAL (1 ml vial) IV PRN ×2 (15:35→21:22)
[2017-10-31] MEDS ORDERED: Morphine VIAL* 4 MG/ML VIAL (1 ml vial) IV ONE (15:43)
--- NOTE | 2017-10-31 16:23 | PN ---
Subjective Date of Service: 10/31/17 Interval History: Pain control OK. Hungry. He had some chills at home, never had sweats. Pain L wrist and erythema L lateral wrist for several days preceded onset of R ankle pain. He thinks his L wrist pain could have been related to lifting weights. Objective Active Medications: Acetaminophen (Tylenol Tab*) 650 mg PO Q4H PRN PRN Reason: FEVER/PAIN Aspirin (Aspirin Tab*) 325 mg PO BID [facility] Fentanyl Citrate (Fentanyl*) 50 mcg IV Q5M PRN PRN Reason: PAIN - MODERATE Stop: 10/31/17 18:00 Last Admin: 10/31/17 14:51 Dose: 50 mcg Heparin Sodium (Porcine) (Heparin Vial(*)) 5,000 units SUBCUT Q8HR [facility] Last Admin: 10/31/17 15:47 Dose: 5,000 units Hydromorphone HCl (Dilaudid Inj*) 0.5 mg IV SLOW PU Q4H PRN PRN Reason: PAIN Last Admin: 10/31/17 02:28 Dose: 0.5 mg Sodium Chloride (Ns 0.9% 1000 Ml*) 1,000 mls @ 125 mls/hr IV PER RATE [facility] Last Admin: 10/31/17 07:34 Dose: 125 mls/hr Ceftriaxone Sodium 2 gm/ (Sodium Chloride) 100 mls @ 200 mls/hr IVPB Q24H [facility] Last Admin: 10/30/17 20:31 Dose: 200 mls/hr Doxycycline Hyclate 100 mg/ (Sodium Chloride) 250 mls @ 250 mls/hr IVPB Q12H [facility] Magnesium Hydroxide (Milk Of Magnesia Liq*) 30 ml PO BID OK Magnesium Hydroxide (Milk Of Magnesia Liq*) 30 ml PO Q6H PRN PRN Reason: constipation Morphine Sulfate (Morphine Vial*) 3 mg IV Q2H PRN PRN Reason: PAIN Naloxone HCl (Narcan*) 0.08 mg IV Q2M PRN PRN Reason: severe induced resp depression Stop: 11/01/17 13:18 Oxycodone/Acetaminophen (Percocet 5/325 Tab*) 1 tab PO Q4H PRN PRN Reason: PAIN Last Admin: 10/31/17 05:54 Dose: 1 tab Oxycodone/Acetaminophen (Percocet 5/325 Tab*) 2 tab PO Q4H PRN PRN Reason: PAIN Last Admin: 10/31/17 14:54 Dose: 2 tab Vital Signs - 8 hr 10/31/17 10/31/17 10/31/17 12:47 13:42 13:43 Temperature Pulse Rate 62 68 Respiratory 11 Rate Blood Pressure 113/65 (mmHg) O2 Sat by Pulse 100 98 97 Oximetry 10/31/17 10/31/17 10/31/17 13:44 13:45 13:50 Temperature 97.7 F Pulse Rate 72 69 69 Respiratory 20 19 18 Rate Blood Pressure 113/65 126/82 125/80 (mmHg) O2 Sat by Pulse 99 100 Oximetry 10/31/17 10/31/17 10/31/17 13:55 14:00 14:01 Temperature Pulse Rate 77 81 85 Respiratory 14 19 20 Rate Blood Pressure 127/75 141/64 (mmHg) O2 Sat by Pulse 100 99 99 Oximetry 10/31/17 10/31/17 10/31/17 14:15 14:28 14:30 Temperature Pulse Rate 71 74 Respiratory 15 18 15 Rate Blood Pressure 131/77 138/76 (mmHg) O2 Sat by Pulse 90 96 Oximetry 10/31/17 10/31/17 10/31/17 14:45 14:51 14:54 Temperature Pulse Rate 74 Respiratory 20 17 18 Rate Blood Pressure 123/70 (mmHg) O2 Sat by Pulse 97 Oximetry Oxygen Devices in Use Now: None Appearance: Alert, partly up in bed. In good spirits. Looks comfortable. Extremities: No Edema, No Clubbing, Cyanosis, - - R foot/ankle bandageed Skin: No Nodules or Sclerosis, - - faint 2 cm red area L lateral wrist. Neurological: Alert and Oriented x 3, NL Sensation Result Diagrams: 10/31/17 06:13 10/31/17 06:13 Additional Lab and Data: Lab Results 10/30/17 10/30/17 10/30/17 Range/Units 12:51 12:51 13:30 WBC 12.1 H (3.5-10.8) 10^3/ul RBC 4.44 (4.0-5.4) 10^6/ul Hgb 13.7 L (14.0-18.0) g/dl Hct 40 L (42-52) % MCV 91 (80-94) fL MCH 31 (27-31) pg MCHC 34 (31-36) g/dl RDW 13 (10.5-15) % Plt Count 264 (150-450) 10^3/ul MPV 7.7 (7.4-10.4) um3 Neut % (Auto) 69.5 (38-83) % Lymph % (Auto) 15.8 L (25-47) % Forrest % (Auto) 13.7 H (0-7) % Eos % (Auto) 0.2 (0-6) % Baso % (Auto) 0.8 (0-2) % Absolute Neuts (auto) 8.4 H (1.5-7.7) 10^3/ul Absolute Lymphs (auto) 1.9 (1.0-4.8) 10^3/ul Absolute Monos (auto) 1.7 H (0-0.8) 10^3/ul Absolute Eos (auto) 0 (0-0.6) 10^3/ul Absolute Basos (auto) 0.1 (0-0.2) 10^3/ul Absolute Nucleated RBC 0 10^3/ul Nucleated RBC % 0 ESR 71 H (0-14) mm/Hr Sodium 139 (139-145) mmol/L Potassium 3.4 L (3.5-5.0) mmol/L Chloride 100 L (101-111) mmol/L Carbon Dioxide 29 (22-32) mmol/L Anion Gap 10 (2-11) mmol/L BUN 21 (6-24) mg/dL Creatinine 1.04 (0.67-1.17) mg/dL Est GFR ( Amer) 117.1 (>60) Est GFR (Non-Af Amer) 91.0 (>60) BUN/Creatinine Ratio 20.2 H (8-20) Glucose 95 (70-100) mg/dL Calcium 9.7 (8.6-10.3) mg/dL Total Bilirubin 0.40 (0.2-1.0) mg/dL AST 20 (13-39) U/L ALT 16 (7-52) U/L Alkaline Phosphatase 59 (34-104) U/L C-Reactive Protein 179.65 H (< 5.00) mg/L Total Protein 8.1 (6.4-8.9) g/dL Albumin 4.2 (3.2-5.2) g/dL Globulin 3.9 (2-4) g/dL Albumin/Globulin Ratio 1.1 (1-3) Fluid Source Synovial fluid Fluid Volume 4 mL Fluid Color Red Fluid Appearance Bloody Fluid WBC TNP Fluid RBC TNP Fluid Tot Cell Count 100 Fluid Neutrophils 94 % Fluid Lymphocytes 1 % Fluid Monocytes 5 % Fluid Cell Count Rvw By Fluid Crystals (None Seen) Fluid Comment Group A Strep Rapid (Negative) 10/30/17 10/30/17 Range/Units 13:30 17:35 WBC (3.5-10.8) 10^3/ul RBC (4.0-5.4) 10^6/ul Hgb (14.0-18.0) g/dl Hct (42-52) % MCV (80-94) fL MCH (27-31) pg MCHC (31-36) g/dl RDW (10.5-15) % Plt Count (150-450) 10^3/ul MPV (7.4-10.4) um3 Neut % (Auto) (38-83) % Lymph % (Auto) (25-47) % Forrest % (Auto) (0-7) % Eos % (Auto) (0-6) % Baso % (Auto) (0-2) % Absolute Neuts (auto) (1.5-7.7) 10^3/ul Absolute Lymphs (auto) (1.0-4.8) 10^3/ul Absolute Monos (auto) (0-0.8) 10^3/ul Absolute Eos (auto) (0-0.6) 10^3/ul Absolute Basos (auto) (0-0.2) 10^3/ul Absolute Nucleated RBC 10^3/ul Nucleated RBC % ESR (0-14) mm/Hr Sodium (139-145) mmol/L Potassium (3.5-5.0) mmol/L Chloride (101-111) mmol/L Carbon Dioxide (22-32) mmol/L Anion Gap (2-11) mmol/L BUN (6-24) mg/dL Creatinine (0.67-1.17) mg/dL Est GFR ( Amer) (>60) Est GFR (Non-Af Amer) (>60) BUN/Creatinine Ratio (8-20) Glucose (70-100) mg/dL Calcium (8.6-10.3) mg/dL Total Bilirubin (0.2-1.0) mg/dL AST (13-39) U/L ALT (7-52) U/L Alkaline Phosphatase (34-104) U/L C-Reactive Protein (< 5.00) mg/L Total Protein (6.4-8.9) g/dL Albumin (3.2-5.2) g/dL Globulin (2-4) g/dL Albumin/Globulin Ratio (1-3) Fluid Source Fluid Volume mL Fluid Color Fluid Appearance Fluid WBC Fluid RBC Fluid Tot Cell Count Fluid Neutrophils % Fluid Lymphocytes % Fluid Monocytes % Fluid Cell Count Rvw By Fluid Crystals None seen (None Seen) Fluid Comment Group A Strep Rapid Negative (Negative) Microbiology and Other Data: Microbiology 10/31/17 12:01 Gram Stain - Final Wound - Ankle Right Assess/Plan/Problems-Billing Assessment: - Patient Problems (1) Arthritis Current Visit: Yes Status: Acute Code(s): M19.90 - UNSPECIFIED OSTEOARTHRITIS, UNSPECIFIED SITE SNOMED Code(s): 7606464 Comment: Not clear if L wrist pain and erythema is related to his present R ankle arthritis. Infectious and non-infectious causes are possible. Continue ceftriaxone and doxycycline. CRP, CBC 11/01. (2) Hyponatremia Current Visit: Yes Status: Acute Code(s): E87.1 - HYPO-OSMOLALITY AND HYPONATREMIA SNOMED Code(s): 20462547 Comment: BMP 11/01.
[2017-10-31] MEDS: DOXYcycline IV* 100 MG in NS 0.9% 250 ML* 250 ML IVPB SCH (18:26)
[2017-10-31 19:26] LABS: B garinii/B afzelii PCR Negative (Negative)
[2017-10-31] MEDS: cefTRIAXone(*) 2 GM in NS 0.9% 100 ML* 100 ML IVPB SCH (20:13)
[2017-10-31] MEDS: Magnesium Hydroxide LIQ* 30 ML UDC PO SCH (20:13)
[2017-10-31] MEDS: Aspirin TAB* 325 MG PO SCH (20:13)
[2017-11-01] MEDS: oxyCODONE/Acetamin 5/325 MG* TAB PO PRN ×4 (05:04→20:13)
[2017-11-01] MEDS: Heparin VIAL(*) 5000 UNITS/ML VIAL (FIVE THOUSAND) SUBCUT SCH ×3 (05:04→22:52)
[2017-11-01] MEDS: DOXYcycline IV* 100 MG in NS 0.9% 250 ML* 250 ML IVPB SCH ×2 (05:05→17:38)
[2017-11-01 05:23] LABS: ABS Basophils 0 10^3/ul (0-0.2); ABS Eosinophils 0.1 10^3/ul (0-0.6); ABS Lymphocytes 2.5 10^3/ul (1.0-4.8); ABS Monocytes 1.3 10^3/ul (0-0.8); ABS Neutrophils 4.6 10^3/ul (1.5-7.7); ABS Nucleated RBC 0 10^3/ul; Eosinophil % 1.4 % (0-6); Hematocrit 39 % (42-52); Hemoglobin 13.1 g/dl (14.0-18.0); Lymphocyte % 29.2 % (25-47); Mean Corpuscular HGB Conc 34 g/dl (31-36); Mean Corpuscular Hemoglobin 31 pg (27-31); Mean Corpuscular Volume 91 fL (80-94); Nucleated Red Blood Cells % 0; Platelet Count 273 10^3/ul (150-450); Red Blood Count 4.25 10^6/ul (4.0-5.4); Red Cell Distribution Width 13 % (10.5-15); White Blood Count 8.5 10^3/ul (3.5-10.8)
--- NOTE | 2017-11-01 08:45 | PN ---
Progress Note - Progress Note Date of Service: 11/01/17 SOAP: Subjective: Pain much decreased. No numbness or tingling. He has noted that he has been able to move his toes and ankle without significant pain. Objective: RLE - splint in place - sensation intact all toes, can actively flex/ext all toes - no pain with PROM lesser toes - only mild, inconsistent pain with PROM great toe (a significant improvement from preop) Microbiology 10/31/17 12:01 Wound - Ankle Right Gram Stain - Final Selected Entries 11/01/17 03:43 Temperature 97.7 F Pulse Rate 63 Respiratory 16 Rate Blood Pressure 114/57 (mmHg) O2 Sat by Pulse 100 Oximetry Laboratory Tests 10/30/17 10/30/17 10/31/17 12:51 12:51 06:13 WBC 12.1 H 9.9 Neut % (Auto) C-Reactive Protein 179.65 H 11/01/17 11/01/17 04:46 04:46 WBC 8.5 Neut % (Auto) 53.5 C-Reactive Protein 178.47 H Assessment: POD 1 arthroscopic I&D FHL tendon sheath, tibiotalar (ankle) joint, posterior facet talocalcanear joint & open I&D anterior and middle facet talocalcanear joint Infection posterior ankle, unclear source & organism Plan: - Clear yellow, thick pus was encountered yesterday intraoperatively at the start of the case about the posterior ankle. There was clearly an infection. - I obtained one set of culture swabs at the start of the case. That is what yielded a gram stain for 1+ possible gram positive bacillus. The other 2 sets of cultures were obtained with fluid while I arthroscoped so are unlikely to yield much helpful information. - Continue IV antibiotics - Follow cultures from intraop. - Continue splint and toe touch/touchdown weight bearing with crutches. we will change dressing and remove Fidelina drain. We may or may not continue splint at that time depending on comfort. - CRP repeat on 11/03. Not surprising that it hasn't yet dropped given surgery was within 24 hours of today's CRP draw. - Defer to ID, but anticipate the patient will need PICC and 6 weeks IV antibiotics - Med manage by Hospitalist
[2017-11-01] MEDS ORDERED: DOXYcycline IV* 100 MG in NS 0.9% 250 ML* 250 ML IVPB SCH (09:00)
--- NOTE | 2017-11-01 09:17 | PN ---
Subjective - Subjective Date of Service: 11/01/17 - Chief complaint : joint swelling History: Overall Mr. Muir is feeling better; he can move his toes. His wrist feels well and there are no other involved joints except his right ankle which is now bandaged after a surgical I and D yesterday. Active Problems: Active Problems Arthritis (Acute) M19.90 Not clear if L wrist pain and erythema is related to his present R ankle arthritis. Infectious and non-infectious causes are possible. Continue ceftriaxone and doxycycline. CRP, CBC 11/01. Hyponatremia (Acute) E87.1 BMP 11/01. Current Medications: Current Medications Acetaminophen (Tylenol Tab*) 650 mg PO Q4H PRN PRN Reason: FEVER/PAIN Aspirin (Aspirin Tab*) 325 mg PO BID [facility] Last Admin: 10/31/17 20:13 Dose: 325 mg Heparin Sodium (Porcine) (Heparin Vial(*)) 5,000 units SUBCUT Q8HR [facility] Last Admin: 11/01/17 05:04 Dose: 5,000 units Hydromorphone HCl (Dilaudid Inj*) 0.5 mg IV SLOW PU Q4H PRN PRN Reason: PAIN Last Admin: 10/31/17 02:28 Dose: 0.5 mg Sodium Chloride (Ns 0.9% 1000 Ml*) 1,000 mls @ 125 mls/hr IV PER RATE [facility] Last Admin: 10/31/17 07:34 Dose: 125 mls/hr Ceftriaxone Sodium 2 gm/ (Sodium Chloride) 100 mls @ 200 mls/hr IVPB Q24H [facility] Last Admin: 10/31/17 20:13 Dose: 200 mls/hr Doxycycline Hyclate 100 mg/ (Sodium Chloride) 250 mls @ 250 mls/hr IVPB Q12H [facility] Last Admin: 11/01/17 05:05 Dose: 250 mls/hr Magnesium Hydroxide (Milk Of Magnesia Liq*) 30 ml PO BID [facility] Last Admin: 10/31/17 20:13 Dose: 30 ml Magnesium Hydroxide (Milk Of Magnesia Liq*) 30 ml PO Q6H PRN PRN Reason: constipation Morphine Sulfate (Morphine Vial*) 3 mg IV Q2H PRN PRN Reason: PAIN Last Admin: 10/31/17 21:22 Dose: 3 mg Naloxone HCl (Narcan*) 0.08 mg IV Q2M PRN PRN Reason: severe induced resp depression Stop: 11/01/17 13:18 Oxycodone/Acetaminophen (Percocet 5/325 Tab*) 1 tab PO Q4H PRN PRN Reason: PAIN Last Admin: 10/31/17 05:54 Dose: 1 tab Oxycodone/Acetaminophen (Percocet 5/325 Tab*) 2 tab PO Q4H PRN PRN Reason: PAIN Last Admin: 11/01/17 05:04 Dose: 2 tab - Review of Systems Constitutional Symptoms: No: Weight Gain, Weight Loss, Fever, Unexplained Falls Dermatology: Normal: Yes HEENT: Yes Normal Eyes: Positive: Normal Pulmonary: Positive: Normal Cardiology: Positive: Normal Gastroenterology: Positive: Normal Musculoskeletal: Positive: Joint Pain, Joint Stiffness Endocrinology: Positive: Normal Neurology: Positive: Normal Home Medications: Home Medications Medication Instructions Recorded Confirmed Type Isotretinoin [Myorisan] 30 mg PO BID 10/29/17 10/30/17 History Allergies: Allergies Allergy/AdvReac Type Severity Reaction Status Date / Time Penicillins Allergy Rash Verified 10/31/17 10:08 Objective - Vital Signs Vital Signs: Vital Signs 10/31/17 10/31/17 10/31/17 12:47 13:42 13:43 Temperature Pulse Rate 62 68 Respiratory 11 Rate Blood Pressure 113/65 (mmHg) O2 Sat by Pulse 100 98 97 Oximetry 10/31/17 10/31/17 10/31/17 13:44 13:45 13:50 Temperature 97.7 F Pulse Rate 72 69 69 Respiratory 20 19 18 Rate Blood Pressure 113/65 126/82 125/80 (mmHg) O2 Sat by Pulse 99 100 Oximetry 10/31/17 10/31/17 10/31/17 13:55 14:00 14:01 Temperature Pulse Rate 77 81 85 Respiratory 14 19 20 Rate Blood Pressure 127/75 141/64 (mmHg) O2 Sat by Pulse 100 99 99 Oximetry 10/31/17 10/31/17 10/31/17 14:15 14:28 14:30 Temperature Pulse Rate 71 74 Respiratory 15 18 15 Rate Blood Pressure 131/77 138/76 (mmHg) O2 Sat by Pulse 90 96 Oximetry 10/31/17 10/31/17 10/31/17 14:45 14:51 14:54 Temperature Pulse Rate 74 Respiratory 20 17 18 Rate Blood Pressure 123/70 (mmHg) O2 Sat by Pulse 97 Oximetry 10/31/17 10/31/17 10/31/17 15:15 15:35 16:00 Temperature 98.4 F Pulse Rate 74 Respiratory 18 20 Rate Blood Pressure 134/60 (mmHg) O2 Sat by Pulse 98 96 Oximetry 10/31/17 10/31/17 10/31/17 16:45 17:19 18:25 Temperature 99.2 F 98.2 F Pulse Rate 93 72 Respiratory 16 16 16 Rate Blood Pressure 124/62 114/50 (mmHg) O2 Sat by Pulse 95 96 Oximetry 10/31/17 10/31/17 10/31/17 18:26 19:21 20:15 Temperature 98.3 F Pulse Rate 72 Respiratory 10 16 16 Rate Blood Pressure 115/54 (mmHg) O2 Sat by Pulse 99 Oximetry 10/31/17 10/31/17 10/31/17 20:37 21:16 21:22 Temperature 98.3 F Pulse Rate 78 Respiratory 16 16 16 Rate Blood Pressure 130/55 (mmHg) O2 Sat by Pulse 98 Oximetry 10/31/17 10/31/17 11/01/17 22:33 23:03 00:07 Temperature 99.7 F Pulse Rate 60 Respiratory 16 18 18 Rate Blood Pressure 111/51 (mmHg) O2 Sat by Pulse 100 Oximetry 11/01/17 11/01/17 11/01/17 01:00 01:49 03:43 Temperature 97.7 F Pulse Rate 63 Respiratory 16 16 Rate Blood Pressure 114/57 (mmHg) O2 Sat by Pulse 100 100 Oximetry 11/01/17 11/01/17 05:04 07:04 Temperature Pulse Rate Respiratory 14 16 Rate Blood Pressure (mmHg) O2 Sat by Pulse Oximetry - Intake and Output Intake and Output: Intake & Output 10/30/17 10/31/17 11/01/17 11/02/17 06:59 06:59 06:59 06:59 Intake Total 500 3847 Output Total 675 2520 375 Balance -175 1327 -375 Weight 155 lb Intake: IV Fluids 1501 ABX - DOXYCYCLINE 258 CLINDAMYACIN 900 MG 50 NS 93 lr 1100 IVPB 1146 ABX - CEFTRIAXONE 48 NS 1098 Oral 500 1200 Output: Urine 675 2500 375 Estimated Blood Loss 20 Other: # Voids 1 1 ADLs: Meal Record Start: 10/30/17 21: 04 Freq: Status: Active Protocol: Created 10/30/17 21:04 System (Rec: 10/30/17 21:04 System [id number]) Document 10/31/17 22:00 [id number] (Rec: 10/31/17 22:18 [id number] [id number]) Intake and Output Start: 10/30/17 21: 04 Freq: DAILY@0600,1400,2200 Status: Cancelled Protocol: Created 10/30/17 21:04 System (Rec: 10/30/17 21:04 System [id number]) Document 10/30/17 22:21 [id number] (Rec: 10/30/17 22:21 [id number] SSU-M18) Document 10/31/17 05:01 [id number] (Rec: 10/31/17 05:02 [id number] SSU-M18) Document 10/31/17 06:15 [id number] (Rec: 10/31/17 06:15 [id number] SSU-M13) Document 10/31/17 06:33 [id number] (Rec: 10/31/17 06:33 [id number] SSU-M18) Document 10/31/17 10:06 [id number] (Rec: 10/31/17 10:06 [id number] SSU-M18) Intake and Output Start: 10/31/17 13: 57 Freq: 06,14,2200 Status: Active Protocol: Created 10/31/17 14:02 [id number] (Rec: 10/31/17 14:02 BKG [id number]) Document 10/31/17 19:05 [id number] (Rec: 10/31/17 22:22 [id number] SSU-C05) Document 10/31/17 21:07 [id number] (Rec: 10/31/17 21:08 [id number] SSU-M14) Document 10/31/17 22:00 [id number] (Rec: 10/31/17 22:18 [id number] SSU-C05) Document 11/01/17 00:08 [id number] (Rec: 11/01/17 00:09 [id number] SSU-M18) Document 11/01/17 01:30 [id number] (Rec: 11/01/17 01:30 [id number] SSU-M18) Document 11/01/17 06:07 [id number] (Rec: 11/01/17 06:07 [id number] U-M18) Document 11/01/17 08:12 [id number] (Rec: 11/01/17 08:12 [id number] U-M18) - Physical Exam General Physical Exam Comment: No acute distress, sitting up. Bandage in place on right ankle. Able to move toes. Eye Exam: bilateral: PERRLA Head: Yes Normocephalic Lungs and Chest: Yes: Chest Expansion Full, Chest Expansion Symetrica Heart Rate and Rhythm: Regular JVP: Not Elevated [place] Beat: Non Displaced Additional Cardiovascular: Yes: [place] Beat not Displaced Abdominal Exam: Yes: Soft - Rheumotological System Joints: Single Joint Abnormality - Ankle wrapped - Extremities Feet Sensation: Abnormal: Sensory Limbs: Normal Power - Neuro Psychiatric: Normal Speech: Normal Results - Results Lab Results: Laboratory Results - last 24 hr 11/01/17 11/01/17 04:46 04:46 WBC 8.5 RBC 4.25 Hgb 13.1 L Hct 39 L MCV 91 MCH 31 MCHC 34 RDW 13 Plt Count 273 MPV 8.0 Neut % (Auto) 53.5 Lymph % (Auto) 29.2 [place] % (Auto) 15.6 H Eos % (Auto) 1.4 Baso % (Auto) 0.3 Absolute Neuts (auto) 4.6 Absolute Lymphs (auto) 2.5 Absolute Monos (auto) 1.3 H Absolute Eos (auto) 0.1 Absolute Basos (auto) 0 Absolute Nucleated RBC 0 Nucleated RBC % 0 Sodium 137 L Potassium 3.8 Chloride 98 L Carbon Dioxide 31 Anion Gap 8 BUN 12 Creatinine 0.89 Est GFR ( Amer) 140.2 Est GFR (Non-Af Amer) 109.0 BUN/Creatinine Ratio 13.5 Glucose 104 H Calcium 9.3 C-Reactive Protein 178.47 H Assessment - Problem List Assessment: Patient Problems Arthritis (Acute) Hyponatremia (Acute) Plan: Migratory inflammatory arthropathy. S/p I and D of his right ankle. Follow up cultures. Overall he is slightly improved. I discussed that his ERNIE is negative but we are still waiting on his RF and other serologies. Would continue Doxycycline and Ceftriaxone to cover possible GC/chlamydia or similiar infection; he may also have a reactive arthritis. HLAb27 is pending. Elevated CRP: I agree that his CRP should improve when re checked on 11/03. DVT prophylaxis.
[2017-11-01] MEDS: Aspirin TAB* 325 MG PO SCH (09:44)
[2017-11-01] MEDS: Magnesium Hydroxide LIQ* 30 ML UDC PO SCH ×2 (09:44→22:52)
--- NOTE | 2017-11-01 11:41 | PN ---
Subjective Date of Service: 11/01/17 Interval History: Pain and swelling of R ankle significantly better today. He can move his toes much better. No sweats or chills. Nl BM after MOM today. Objective Active Medications: Acetaminophen (Tylenol Tab*) 650 mg PO Q4H PRN PRN Reason: FEVER/PAIN Aspirin (Aspirin Tab*) 325 mg PO BID [facility] Last Admin: 11/01/17 09:44 Dose: 325 mg Heparin Sodium (Porcine) (Heparin Vial(*)) 5,000 units SUBCUT Q8HR [facility] Last Admin: 11/01/17 05:04 Dose: 5,000 units Hydromorphone HCl (Dilaudid Inj*) 0.5 mg IV SLOW PU Q4H PRN PRN Reason: PAIN Last Admin: 10/31/17 02:28 Dose: 0.5 mg Sodium Chloride (Ns 0.9% 1000 Ml*) 1,000 mls @ 125 mls/hr IV PER RATE [facility] Last Admin: 10/31/17 07:34 Dose: 125 mls/hr Ceftriaxone Sodium 2 gm/ (Sodium Chloride) 100 mls @ 200 mls/hr IVPB Q24H [facility] Last Admin: 10/31/17 20:13 Dose: 200 mls/hr Doxycycline Hyclate 100 mg/ (Sodium Chloride) 250 mls @ 250 mls/hr IVPB Q12H [facility] Last Admin: 11/01/17 05:05 Dose: 250 mls/hr Magnesium Hydroxide (Milk Of Magnesia Liq*) 30 ml PO BID [facility] Last Admin: 11/01/17 09:44 Dose: 30 ml Magnesium Hydroxide (Milk Of Magnesia Liq*) 30 ml PO Q6H PRN PRN Reason: constipation Morphine Sulfate (Morphine Vial*) 3 mg IV Q2H PRN PRN Reason: PAIN Last Admin: 10/31/17 21:22 Dose: 3 mg Naloxone HCl (Narcan*) 0.08 mg IV Q2M PRN PRN Reason: severe induced resp depression Stop: 11/01/17 13:18 Oxycodone/Acetaminophen (Percocet 5/325 Tab*) 1 tab PO Q4H PRN PRN Reason: PAIN Last Admin: 10/31/17 05:54 Dose: 1 tab Oxycodone/Acetaminophen (Percocet 5/325 Tab*) 2 tab PO Q4H PRN PRN Reason: PAIN Last Admin: 11/01/17 10:28 Dose: 2 tab Vital Signs - 8 hr 11/01/17 11/01/17 11/01/17 03:43 05:04 07:04 Temperature 97.7 F Pulse Rate 63 Respiratory 16 14 16 Rate Blood Pressure 114/57 (mmHg) O2 Sat by Pulse 100 Oximetry 11/01/17 11/01/17 11/01/17 07:47 09:48 10:28 Temperature 98.8 F Pulse Rate 74 Respiratory 16 16 16 Rate Blood Pressure 137/79 (mmHg) O2 Sat by Pulse 100 100 Oximetry Oxygen Devices in Use Now: None Appearance: Alert, sitting up in bed. In good spirits. Looks comfortable. Eyes: No Scleral Icterus Extremities: No Edema, No Clubbing, Cyanosis, - - R foot and ankle bandaged. Neurological: Alert and Oriented x 3, NL Sensation, - - walks well with 2 crutches Result Diagrams: 11/01/17 04:46 11/01/17 04:46 Additional Lab and Data: Lab Results 10/30/17 10/30/17 10/30/17 Range/Units 12:51 12:51 13:30 WBC 12.1 H (3.5-10.8) 10^3/ul RBC 4.44 (4.0-5.4) 10^6/ul Hgb 13.7 L (14.0-18.0) g/dl Hct 40 L (42-52) % MCV 91 (80-94) fL MCH 31 (27-31) pg MCHC 34 (31-36) g/dl RDW 13 (10.5-15) % Plt Count 264 (150-450) 10^3/ul MPV 7.7 (7.4-10.4) um3 Neut % (Auto) 69.5 (38-83) % Lymph % (Auto) 15.8 L (25-47) % [place] % (Auto) 13.7 H (0-7) % Eos % (Auto) 0.2 (0-6) % Baso % (Auto) 0.8 (0-2) % Absolute Neuts (auto) 8.4 H (1.5-7.7) 10^3/ul Absolute Lymphs (auto) 1.9 (1.0-4.8) 10^3/ul Absolute Monos (auto) 1.7 H (0-0.8) 10^3/ul Absolute Eos (auto) 0 (0-0.6) 10^3/ul Absolute Basos (auto) 0.1 (0-0.2) 10^3/ul Absolute Nucleated RBC 0 10^3/ul Nucleated RBC % 0 ESR 71 H (0-14) mm/Hr Sodium 139 (139-145) mmol/L Potassium 3.4 L (3.5-5.0) mmol/L Chloride 100 L (101-111) mmol/L Carbon Dioxide 29 (22-32) mmol/L Anion Gap 10 (2-11) mmol/L BUN 21 (6-24) mg/dL Creatinine 1.04 (0.67-1.17) mg/dL Est GFR ( Amer) 117.1 (>60) Est GFR (Non-Af Amer) 91.0 (>60) BUN/Creatinine Ratio 20.2 H (8-20) Glucose 95 (70-100) mg/dL Calcium 9.7 (8.6-10.3) mg/dL Total Bilirubin 0.40 (0.2-1.0) mg/dL AST 20 (13-39) U/L ALT 16 (7-52) U/L Alkaline Phosphatase 59 (34-104) U/L C-Reactive Protein 179.65 H (< 5.00) mg/L Total Protein 8.1 (6.4-8.9) g/dL Albumin 4.2 (3.2-5.2) g/dL Globulin 3.9 (2-4) g/dL Albumin/Globulin Ratio 1.1 (1-3) Fluid Source Synovial fluid Fluid Volume 4 mL Fluid Color Red Fluid Appearance Bloody Fluid WBC TNP Fluid RBC TNP Fluid Tot Cell Count 100 Fluid Neutrophils 94 % Fluid Lymphocytes 1 % Fluid Monocytes 5 % Fluid Cell Count Rvw By Fluid Crystals (None Seen) Fluid Comment Group A Strep Rapid (Negative) 10/30/17 10/30/17 Range/Units 13:30 17:35 WBC (3.5-10.8) 10^3/ul RBC (4.0-5.4) 10^6/ul Hgb (14.0-18.0) g/dl Hct (42-52) % MCV (80-94) fL MCH (27-31) pg MCHC (31-36) g/dl RDW (10.5-15) % Plt Count (150-450) 10^3/ul MPV (7.4-10.4) um3 Neut % (Auto) (38-83) % Lymph % (Auto) (25-47) % [place] % (Auto) (0-7) % Eos % (Auto) (0-6) % Baso % (Auto) (0-2) % Absolute Neuts (auto) (1.5-7.7) 10^3/ul Absolute Lymphs (auto) (1.0-4.8) 10^3/ul Absolute Monos (auto) (0-0.8) 10^3/ul Absolute Eos (auto) (0-0.6) 10^3/ul Absolute Basos (auto) (0-0.2) 10^3/ul Absolute Nucleated RBC 10^3/ul Nucleated RBC % ESR (0-14) mm/Hr Sodium (139-145) mmol/L Potassium (3.5-5.0) mmol/L Chloride (101-111) mmol/L Carbon Dioxide (22-32) mmol/L Anion Gap (2-11) mmol/L BUN (6-24) mg/dL Creatinine (0.67-1.17) mg/dL Est GFR ( Amer) (>60) Est GFR (Non-Af Amer) (>60) BUN/Creatinine Ratio (8-20) Glucose (70-100) mg/dL Calcium (8.6-10.3) mg/dL Total Bilirubin (0.2-1.0) mg/dL AST (13-39) U/L ALT (7-52) U/L Alkaline Phosphatase (34-104) U/L C-Reactive Protein (< 5.00) mg/L Total Protein (6.4-8.9) g/dL Albumin (3.2-5.2) g/dL Globulin (2-4) g/dL Albumin/Globulin Ratio (1-3) Fluid Source Fluid Volume mL Fluid Color Fluid Appearance Fluid WBC Fluid RBC Fluid Tot Cell Count Fluid Neutrophils % Fluid Lymphocytes % Fluid Monocytes % Fluid Cell Count Rvw By Fluid Crystals None seen (None Seen) Fluid Comment Group A Strep Rapid Negative (Negative) Microbiology and Other Data: Microbiology 10/31/17 12:01 Gram Stain - Final Wound - Ankle Right Assess/Plan/Problems-Billing Assessment: - Patient Problems (1) Arthritis Current Visit: Yes Status: Acute Code(s): M19.90 - UNSPECIFIED OSTEOARTHRITIS, UNSPECIFIED SITE SNOMED Code(s): 0608239 Comment: Not clear if L wrist pain and erythema is related to his present R ankle arthritis. Infectious and non-infectious causes are possible. Continue ceftriaxone and doxycycline. CRP unchanged 11/01; WBC down to 8.5. Afebrile since 10/30/17 21:02 hrs through 11/01/17 07:47 hrs. (2) Hyponatremia Current Visit: Yes Status: Acute Code(s): E87.1 - HYPO-OSMOLALITY AND HYPONATREMIA SNOMED Code(s): 62001795 Comment: Na+ increased slightly to 137 on 11/01.
[2017-11-01] MEDS: cefTRIAXone(*) 2 GM in NS 0.9% 100 ML* 100 ML IVPB SCH (20:14)
[2017-11-02] MEDS: oxyCODONE/Acetamin 5/325 MG* TAB PO PRN ×5 (00:40→20:32)
--- NOTE | 2017-11-02 02:58 | OP ---
OPERATIVE REPORT: DATE OF OPERATION: 10/31/17 DATE OF : 89 SURGEON: Alfa Pate MD. SUPERVISOR FLESHING: AICHA Mccormick. A physician assistant professor of chemistry was required for the length of the procedure for positioning, assistance with instrumentation, and closure. ANESTHESIOLOGIST: Dr. Delgado Vera. ANESTHESIA: General anesthesia, local anesthesia consisting of approximately 10 cc of 0.25% Marcaine without epinephrine. PRE-OP DIAGNOSES: 1. Right ankle flexor hallucis longus tenosynovitis, likely infectious. 2. Likely infection, right ankle tibiotalar and talocalcaneal joints. POST-OP DIAGNOSES: 1. Right ankle flexor hallucis longus tenosynovitis, infectious. 2. Infection of right ankle tibiotalar and talocalcaneal joints. OPERATIVE PROCEDURE: 1. Right ankle arthroscopic debridement, FHL tenosynovium, and irrigation and debridement, FHL tendon sheath. 2. Right ankle arthroscopic irrigation, debridement, partial synovectomy, right ankle tibiotalar and posterior facet of talocalcaneal joint. 3. Open right ankle irrigation and debridement, arthrotomy, talocalcaneal joint , anterior and middle facets. ANTIBIOTICS: Clindamycin 900 mg IV. IV FLUIDS: 1100 mL crystalloid. TOURNIQUET TIME: 88 minutes at 300 mmHg. [id number] TIME: 84 minutes. IRRIGATION: Arthroscopic and open combined: 9 liters. SPECIMEN: Aerobic and anaerobic culture swabs, posterior ankle. Fluid from arthroscopy of tibiotalar and talocalcaneal joints. IMPLANTS: None. ESTIMATED BLOOD LOSS: Minimal. COMPLICATIONS: None. INDICATIONS FOR PROCEDURE: The patient is a 22-year-old man, local college student, sexually active, who presented with a recent past history of left wrist pain and with 3 to 4 days of increasing right ankle pain. The pain was such that he was unable to ambulate. The patient presented to [facility] on 10/30/17 and my partner, Dr. Hunt, saw the patient, who consulted me the next morning, 10/31/17. The patient had already been seen by Rheumatology, and Rheumatology was concerned about a possible infection or reactive arthropathy of the right ankle. They requested a synovial biopsy. They ordered rheumatologic labs that are pending. The patient had been placed on IV antibiotics, ceftriaxone. When I examined the patient, he had significant swelling and erythema about the ankle, more medial than lateral. He had only mild pain within 5 to 25 degrees of plantar flexion of the ankle, but significant pain outside of that range. He had excruciating pain with any passive range of motion of the great toe IP joint and tenderness to palpation along the FHL tendon at the ankle and level of the hindfoot. Significant tenderness to palpation about the posterior tibiotalar joint. I reviewed the patient's MRI, which showed fluid about the FHL tendon, from the level of the tibiotalar joint to the level of the Knot of Dc. About the posterior ankle, at the level of the tibiotalar joint, there was not just fluid about the FHL, there was also surrounding edema, subcutaneous. The surrounding edema specifically indicated to radiologist, Dr. Wallace, that this was more likely to be infectious tenosynovitis of the FHL rather than a reactive arthropathy or reactive tenosynovitis. The patient was also noted to have an increase in fluid at the tibiotalar and subtalar joints. MRI, according to Radiology, was consistent with infection and exam certainly was consistent with infection. While the patient's ankle, tibiotalar joint aspiration done by the emergency room, had quantity preventing a cell count from having been obtained, the neutrophil percentage was noted to be elevated at 94%, quite elevated. I felt that the patient had likely infections of the right ankle FHL tendon sheath and tibiotalar and talocalcaneal joints. I scheduled the patient for surgery. I discussed risks and potential complications of surgery including bleeding, infection, nerve or blood vessel injury, ankle pain, stiffness, arthritis, recurrence of infection, tendon rupture. DESCRIPTION OF PROCEDURE: In preoperative holding, the patient signed a surgical consent. Operative extremity was marked in preoperative holding. The patient was taken back to the operating room. On the stretcher, he was intubated. He was slipped into a prone position on the operating room table. The operative table was well padded, including chest rolls. The patient's bilateral axillae were free from compression. The patient's feet were off the bottom of the operative room table. The patient was secured appropriately. Tourniquet was placed about the right thigh, but not yet inflated. The right lower extremity was prepped with Betadine and then draped. Surgical time-out was performed. Esmarch was applied and the tourniquet was elevated to 300 mmHg. With the skin pen, I marked appropriate landmarks about the posterior ankle. I established a skin incision for a posterolateral arthroscopic portal. Immediately, thick yellow pus flowed out of the incision. It was not a high volume such that it was easier to get culture swabs without the arthroscopic cannula in place then through cannula. At this point, I applied the pus emanating from the posterior ankle through the incision to aerobic and anaerobic culture swabs. I then placed a cannula and my 2.7 mm arthroscope through the skin, into the posterior ankle. Fluid was infused. There was much inflammation about the posterior ankle. I established a posteromedial ankle arthroscopy portal under direct visualization. I introduced an arthroscopic shaver. I used arthroscopic shaver to debride a significant amount of synovitis about the posterior ankle. Only after I had removed much inflamed tissue was I able to get a field for the location of the FHL, and the tibiotalar joint. I obtained multiple arthroscopic photographs of the FHL tendon. It looked slightly frayed at the musculotendinous junction. I used an arthroscopic shaver to debride some inflamed tenosynovium in the FHL canal. The tendon did not have any high- grade partial thickness or full thickness tear. I respected the transverse ligaments about the posterior ankle, but I probed and found the tibiotalar joint. I debrided some posterior capsule. I then opened up the tibiotalar joint. We put it on traction, the ankle, which allowed for improved visualization into the tibiotalar joint. Articular cartilage looked healthy. No articular cartilage lesions. I continued to irrigate through that joint. We had removed much synovium about the posterior aspect of the tibiotalar joints. We performed a biopsy, removing some ligament and synovium from the posterior aspect of the tibiotalar joint. We moved more distal, using the same original arthroscopy portal sites. We directed our attention more distal, debriding synovitic tissue and opening up the posterior facet of the subtalar or otherwise known as the talocalcaneal joint. There was a tiny amount of scuffing about the undersurface of the talus, about the posterior aspect of this joint, but nothing significant. This joint was opened up and irrigated well. When I was washing out both the tibiotalar and talocalcaneal joint, I obtained some fluid to send for Lyme analysis as well as Gram-stain and culture. I made sure that a large amount of irrigation went through the ankle joint, approximately 6 liters. I removed the instruments, arthroscopic. We closed the posterior medial portal with one simple stitch using nylon 3-0 suture. We placed a small Fidelina drain into the posterior ankle space, through the posterolateral skin incision. Given the inability to visualize the anterior and medial facets of the talocalcaneal joint from posterior, I then performed an open arthrotomy of the talocalcaneal joint from a lateral approach. We had anesthesia airplane the bed slightly, with the patient still in a prone position, to allow for improved exposure of the lateral aspect of the ankle. I made a 4 to 5 cm skin incision from the distal tip of the fibula, in the direction of the base of the 4th metatarsal. I dissected with scissors through the subcutaneous tissue. There was no bleeding. All neurovascular structures were respected. I dissected down to the anterior and medial facets of the talocalcaneal joint. I then irrigated well, with approximately an additional 3 liters, for a total of 9 liters that were used to irrigate the ankle during this procedure. We closed the open lateral ankle incision using 2 running stitches of the skin using nylon 3-0 suture. Then 4x4s were placed, followed by sterile Webril, followed by a one-step posterior splint and an Arturo bandage. The tourniquet was dropped. The patient was returned to the supine position on the stretcher and the patient was extubated. DISPOSITION: The patient will be readmitted to the hospitalist service postoperatively and will continue IV antibiotics. We will follow intraoperative cultures to refine our choice of antibiotics. The patient will be touch-down weightbearing with the posterior splint for 2 days. On postoperative day 2, we will change the patient's dressing and remove his Raleigh drain. We will let the clinical exam to determine how quickly we allow the patient to bear weight with that right lower extremity. We will perhaps give him a walking boot. I will communicate to the hospitalist and rheumatology services that this patient definitively had an infection. There was clearly pus that was expressed from the posterior aspect of the ankle when I made my first surgical incision for the posterolateral ankle arthroscopy portal. Therefore, this needs to be treated as such, rather than as a reactive arthritis. [id number]/[facility] #: [id number] RADHA
[2017-11-02] MEDS: DOXYcycline IV* 100 MG in NS 0.9% 250 ML* 250 ML IVPB SCH ×2 (06:55→19:45)
[2017-11-02] MEDS: Heparin VIAL(*) 5000 UNITS/ML VIAL (FIVE THOUSAND) SUBCUT SCH ×3 (07:03→22:29)
[2017-11-02] MEDS: Magnesium Hydroxide LIQ* 30 ML UDC PO SCH ×2 (09:30→22:32)
--- NOTE | 2017-11-02 10:04 | PN ---
Progress Note - Progress Note Date of Service: 11/02/17 SOAP: Subjective: Decreased pain right ankle. Still taking Percocet, but decreasing volume/ frequency. No pain left wrist. Objective: RLE: - Much drainage on dressing from Starks drain site, serosanguinous - Decreased soft tissue swelling ankle; no erythema skin - PROM ankle now 5 dorsiflexion to 40 plantarflexion. No pain within that range but pain at terminal ROM. - No pain with passive inversion/eversion ankle. - Improved PROM great toe at IP and MP joints with inconsistent pain with terminal extension - NVID LUE: - No pain PROM wrist. No TTP Selected Entries 11/01/17 11/01/17 11/02/17 15:35 20:13 00:34 Temperature 98.6 F 98.3 F 98.7 F Pulse Rate Respiratory Rate Blood Pressure (mmHg) O2 Sat by Pulse Oximetry Patient on Room Air 11/02/17 04:45 Temperature 97.9 F Pulse Rate 44 Respiratory 16 Rate Blood Pressure 114/57 (mmHg) O2 Sat by Pulse 100 Oximetry Patient on Room Yes Air Microbiology 10/31/17 12:01 Wound - Ankle Right Gram Stain - Final 10/31/17 12:01 Wound - Ankle Right Anaerobic Culture - Preliminary 10/31/17 12:01 Wound - Ankle Right Wound Culture - Preliminary No Growth Day 1 No Growth Day 1 Laboratory Tests 10/30/17 10/30/17 10/30/17 12:51 12:51 12:51 WBC 12.1 H C-Reactive Protein 179.65 H Rheumatoid Factor 13 Anti-Nuclear Antibody 0.2 Lyme Disease Serology Negative B. burgdorferi (PCR) Negative B.garinii/afzelii PCR Negative B. mayonii (PCR) Negative C.trachomatis (Amp Det) N.gonorrhoeae (Amp Det) Group A Strep Rapid 10/30/17 10/30/17 10/31/17 17:35 17:35 06:13 WBC 9.9 C-Reactive Protein Rheumatoid Factor Anti-Nuclear Antibody Lyme Disease Serology B. burgdorferi (PCR) B.garinii/afzelii PCR B. mayonii (PCR) C.trachomatis (Amp Det) Negative N.gonorrhoeae (Amp Det) Negative Group A Strep Rapid Negative 11/01/17 11/01/17 04:46 04:46 WBC 8.5 C-Reactive Protein 178.47 H Rheumatoid Factor Anti-Nuclear Antibody Lyme Disease Serology B. burgdorferi (PCR) B.garinii/afzelii PCR B. mayonii (PCR) C.trachomatis (Amp Det) N.gonorrhoeae (Amp Det) Group A Strep Rapid Assessment: POD 2 R ankle arthroscopic I&D FHL tendon sheath, tibiotalar joint, posterior facet talocalcaneus joint and open I&D anterior and middle facet talocalcaneus joint. Infection posterior ankle, unclear origin and organism Plan: - Discussed with Hospitalist today that this was clearly, without any doubt whatsoever, an infection rather than just reactive arthritis or another rheumatologic condition. There was ramu pus present, albeit only minimal volume, intraoperatively when I made my first portal for arthroscopy. - We changed the patient's dressing this morning, left Starks in place, and replaced the posterior splint - Continue broad spectrum IV antibiotics Doxy and Ceftriaxone - Follow cultures - Await ID/MacQueen input tomorrow - RLE elevation on pillow, pain control as needed - I encouraged patient to flex and extend his great toe to prevent adhesions and to make that ROM more comfortable - Tomorrow morning, 11/03/17, the patient will have his dressing changed and the Starks removed. He will have a DSD applied and will then be put in a tall walking boot. - Await CRP results 11/03/17 AM to confirm improvement of clinical course - I told the patient to anticipate admission until sometime between Friday- Friday until ankle is less swollen/painful so it is clear that he does not need a 2nd I&D. I told him that he will likely need a PICC line with weeks of IV antibiotics, but that I defer to ID on exact regiment. Hopefully intraop cultures will grow an organism that will allow for more focused antibiotics.
--- NOTE | 2017-11-02 16:15 | PN ---
Subjective Date of Service: 11/02/17 Interval History: Pain somewhat better. Uses oxy/APAP about every 6 hrs. Objective Active Medications: Acetaminophen (Tylenol Tab*) 650 mg PO Q4H PRN PRN Reason: FEVER/PAIN Heparin Sodium (Porcine) (Heparin Vial(*)) 5,000 units SUBCUT Q8HR [facility] Last Admin: 11/02/17 15:16 Dose: 5,000 units Hydromorphone HCl (Dilaudid Inj*) 0.5 mg IV SLOW PU Q4H PRN PRN Reason: PAIN Last Admin: 10/31/17 02:28 Dose: 0.5 mg Sodium Chloride (Ns 0.9% 1000 Ml*) 1,000 mls @ 125 mls/hr IV PER RATE [facility] Last Admin: 10/31/17 07:34 Dose: 125 mls/hr Ceftriaxone Sodium 2 gm/ (Sodium Chloride) 100 mls @ 200 mls/hr IVPB Q24H [facility] Last Admin: 11/01/17 20:14 Dose: 200 mls/hr Doxycycline Hyclate 100 mg/ (Sodium Chloride) 250 mls @ 250 mls/hr IVPB Q12H [facility] Last Admin: 11/02/17 06:55 Dose: 250 mls/hr Magnesium Hydroxide (Milk Of Magnesia Liq*) 30 ml PO BID [facility] Last Admin: 11/02/17 09:30 Dose: 30 ml Magnesium Hydroxide (Milk Of Magnesia Liq*) 30 ml PO Q6H PRN PRN Reason: constipation Morphine Sulfate (Morphine Vial*) 3 mg IV Q2H PRN PRN Reason: PAIN Last Admin: 10/31/17 21:22 Dose: 3 mg Oxycodone/Acetaminophen (Percocet 5/325 Tab*) 1 tab PO Q4H PRN PRN Reason: PAIN Last Admin: 11/01/17 16:06 Dose: 1 tab Oxycodone/Acetaminophen (Percocet 5/325 Tab*) 2 tab PO Q4H PRN PRN Reason: PAIN Last Admin: 11/02/17 10:43 Dose: 2 tab Vital Signs - 8 hr 11/02/17 11/02/17 11/02/17 10:43 12:13 13:15 Temperature 97.8 F Pulse Rate 69 Respiratory 18 16 16 Rate Blood Pressure 131/71 (mmHg) O2 Sat by Pulse 100 Oximetry Oxygen Devices in Use Now: None Appearance: Alert, sitting on the edge of his bed. In good spirits. Looks comfortable. Extremities: No Edema, No Clubbing, Cyanosis, - - R foot bandaged. Skin: No Rash or Ulcers, No Nodules or Sclerosis, - Neurological: Alert and Oriented x 3, NL Sensation Result Diagrams: 11/01/17 04:46 11/01/17 04:46 Additional Lab and Data: Lab Results 10/30/17 10/30/17 10/30/17 Range/Units 12:51 12:51 13:30 WBC 12.1 H (3.5-10.8) 10^3/ul RBC 4.44 (4.0-5.4) 10^6/ul Hgb 13.7 L (14.0-18.0) g/dl Hct 40 L (42-52) % MCV 91 (80-94) fL MCH 31 (27-31) pg MCHC 34 (31-36) g/dl RDW 13 (10.5-15) % Plt Count 264 (150-450) 10^3/ul MPV 7.7 (7.4-10.4) um3 Neut % (Auto) 69.5 (38-83) % Lymph % (Auto) 15.8 L (25-47) % Terrell % (Auto) 13.7 H (0-7) % Eos % (Auto) 0.2 (0-6) % Baso % (Auto) 0.8 (0-2) % Absolute Neuts (auto) 8.4 H (1.5-7.7) 10^3/ul Absolute Lymphs (auto) 1.9 (1.0-4.8) 10^3/ul Absolute Monos (auto) 1.7 H (0-0.8) 10^3/ul Absolute Eos (auto) 0 (0-0.6) 10^3/ul Absolute Basos (auto) 0.1 (0-0.2) 10^3/ul Absolute Nucleated RBC 0 10^3/ul Nucleated RBC % 0 ESR 71 H (0-14) mm/Hr Sodium 139 (139-145) mmol/L Potassium 3.4 L (3.5-5.0) mmol/L Chloride 100 L (101-111) mmol/L Carbon Dioxide 29 (22-32) mmol/L Anion Gap 10 (2-11) mmol/L BUN 21 (6-24) mg/dL Creatinine 1.04 (0.67-1.17) mg/dL Est GFR ( Amer) 117.1 (>60) Est GFR (Non-Af Amer) 91.0 (>60) BUN/Creatinine Ratio 20.2 H (8-20) Glucose 95 (70-100) mg/dL Calcium 9.7 (8.6-10.3) mg/dL Total Bilirubin 0.40 (0.2-1.0) mg/dL AST 20 (13-39) U/L ALT 16 (7-52) U/L Alkaline Phosphatase 59 (34-104) U/L C-Reactive Protein 179.65 H (< 5.00) mg/L Total Protein 8.1 (6.4-8.9) g/dL Albumin 4.2 (3.2-5.2) g/dL Globulin 3.9 (2-4) g/dL Albumin/Globulin Ratio 1.1 (1-3) Fluid Source Synovial fluid Fluid Volume 4 mL Fluid Color Red Fluid Appearance Bloody Fluid WBC TNP Fluid RBC TNP Fluid Tot Cell Count 100 Fluid Neutrophils 94 % Fluid Lymphocytes 1 % Fluid Monocytes 5 % Fluid Cell Count Rvw By Fluid Crystals (None Seen) Fluid Comment Group A Strep Rapid (Negative) 10/30/17 10/30/17 Range/Units 13:30 17:35 WBC (3.5-10.8) 10^3/ul RBC (4.0-5.4) 10^6/ul Hgb (14.0-18.0) g/dl Hct (42-52) % MCV (80-94) fL MCH (27-31) pg MCHC (31-36) g/dl RDW (10.5-15) % Plt Count (150-450) 10^3/ul MPV (7.4-10.4) um3 Neut % (Auto) (38-83) % Lymph % (Auto) (25-47) % Terrell % (Auto) (0-7) % Eos % (Auto) (0-6) % Baso % (Auto) (0-2) % Absolute Neuts (auto) (1.5-7.7) 10^3/ul Absolute Lymphs (auto) (1.0-4.8) 10^3/ul Absolute Monos (auto) (0-0.8) 10^3/ul Absolute Eos (auto) (0-0.6) 10^3/ul Absolute Basos (auto) (0-0.2) 10^3/ul Absolute Nucleated RBC 10^3/ul Nucleated RBC % ESR (0-14) mm/Hr Sodium (139-145) mmol/L Potassium (3.5-5.0) mmol/L Chloride (101-111) mmol/L Carbon Dioxide (22-32) mmol/L Anion Gap (2-11) mmol/L BUN (6-24) mg/dL Creatinine (0.67-1.17) mg/dL Est GFR ( Amer) (>60) Est GFR (Non-Af Amer) (>60) BUN/Creatinine Ratio (8-20) Glucose (70-100) mg/dL Calcium (8.6-10.3) mg/dL Total Bilirubin (0.2-1.0) mg/dL AST (13-39) U/L ALT (7-52) U/L Alkaline Phosphatase (34-104) U/L C-Reactive Protein (< 5.00) mg/L Total Protein (6.4-8.9) g/dL Albumin (3.2-5.2) g/dL Globulin (2-4) g/dL Albumin/Globulin Ratio (1-3) Fluid Source Fluid Volume mL Fluid Color Fluid Appearance Fluid WBC Fluid RBC Fluid Tot Cell Count Fluid Neutrophils % Fluid Lymphocytes % Fluid Monocytes % Fluid Cell Count Rvw By Fluid Crystals None seen (None Seen) Fluid Comment Group A Strep Rapid Negative (Negative) Microbiology and Other Data: Microbiology 10/31/17 12:01 Gram Stain - Final Wound - Ankle Right Assess/Plan/Problems-Billing Assessment: - Patient Problems (1) Arthritis Current Visit: Yes Status: Acute Code(s): M19.90 - UNSPECIFIED OSTEOARTHRITIS, UNSPECIFIED SITE SNOMED Code(s): 2706903 Comment: Not clear if L wrist pain and erythema is related to his present R ankle arthritis. Infectious and non-infectious causes are possible, but purulent material was removed at washout. Continue ceftriaxone and doxycycline. CRP unchanged 11/01; WBC down to 8.5. Afebrile since 10/30/17 21:02 hrs through 11/02/17 12:13 hrs. Repeat CBC, CRP 11/03. (2) Hyponatremia Current Visit: Yes Status: Acute Code(s): E87.1 - HYPO-OSMOLALITY AND HYPONATREMIA SNOMED Code(s): 82126521 Comment: Na+ increased slightly to 137 on 11/01.
--- NOTE | 2017-11-02 17:04 | PN ---
Subjective - Subjective Date of Service: 11/02/17 - chief complaint : septic arthritis Active Problems: Active Problems Arthritis (Acute) M19.90 Not clear if L wrist pain and erythema is related to his present R ankle arthritis. Infectious and non-infectious causes are possible, but purulent material was removed at washout. Continue ceftriaxone and doxycycline. CRP unchanged 11/01; WBC down to 8.5. Afebrile since 10/30/17 21:02 hrs through 11/02/17 12:13 hrs. Repeat CBC, CRP 11/03. Hyponatremia (Acute) E87.1 Na+ increased slightly to 137 on 11/01. Current Medications: Current Medications Acetaminophen (Tylenol Tab*) 650 mg PO Q4H PRN PRN Reason: FEVER/PAIN Heparin Sodium (Porcine) (Heparin Vial(*)) 5,000 units SUBCUT Q8HR [facility] Last Admin: 11/02/17 15:16 Dose: 5,000 units Hydromorphone HCl (Dilaudid Inj*) 0.5 mg IV SLOW PU Q4H PRN PRN Reason: PAIN Last Admin: 10/31/17 02:28 Dose: 0.5 mg Sodium Chloride (Ns 0.9% 1000 Ml*) 1,000 mls @ 125 mls/hr IV PER RATE [facility] Last Admin: 10/31/17 07:34 Dose: 125 mls/hr Ceftriaxone Sodium 2 gm/ (Sodium Chloride) 100 mls @ 200 mls/hr IVPB Q24H [facility] Last Admin: 11/01/17 20:14 Dose: 200 mls/hr Doxycycline Hyclate 100 mg/ (Sodium Chloride) 250 mls @ 250 mls/hr IVPB Q12H [facility] Last Admin: 11/02/17 06:55 Dose: 250 mls/hr Magnesium Hydroxide (Milk Of Magnesia Liq*) 30 ml PO BID [facility] Last Admin: 11/02/17 09:30 Dose: 30 ml Magnesium Hydroxide (Milk Of Magnesia Liq*) 30 ml PO Q6H PRN PRN Reason: constipation Morphine Sulfate (Morphine Vial*) 3 mg IV Q2H PRN PRN Reason: PAIN Last Admin: 10/31/17 21:22 Dose: 3 mg Oxycodone/Acetaminophen (Percocet 5/325 Tab*) 1 tab PO Q4H PRN PRN Reason: PAIN Last Admin: 11/01/17 16:06 Dose: 1 tab Oxycodone/Acetaminophen (Percocet 5/325 Tab*) 2 tab PO Q4H PRN PRN Reason: PAIN Last Admin: 11/02/17 16:39 Dose: 2 tab - Review of Systems General Comments: Overall Mr. Muir is feeling a little better. He can move his toes on his right foot and the dressing was recently changed. He denied wrist pain or other joint involvement Constitutional Symptoms: No: Weight Gain, Weakness, Fever, Night Sweats Dermatology: Normal: Yes HEENT: Yes Normal Eyes: Positive: Normal Thyroid: Positive: Normal Pulmonary: Positive: Normal Cardiology: Positive: Normal Gastroenterology: Positive: Normal Musculoskeletal: Positive: Joint Stiffness Endocrinology: Positive: Normal Neurology: Positive: Normal Psychiatry: Positive: Normal Home Medications: Home Medications Medication Instructions Recorded Confirmed Type Isotretinoin [Myorisan] 30 mg PO BID 10/29/17 10/30/17 History Allergies: Allergies Allergy/AdvReac Type Severity Reaction Status Date / Time Penicillins Allergy Rash Verified 10/31/17 10:08 Objective - Vital Signs Vital Signs: Vital Signs 11/01/17 11/01/17 11/01/17 18:13 20:13 22:15 Temperature 98.3 F Pulse Rate 68 Respiratory 16 16 16 Rate Blood Pressure 139/73 (mmHg) O2 Sat by Pulse 100 Oximetry 11/02/17 11/02/17 11/02/17 00:34 00:35 00:40 Temperature 98.7 F Pulse Rate 57 Respiratory 16 16 Rate Blood Pressure 111/64 (mmHg) O2 Sat by Pulse 97 97 Oximetry 11/02/17 11/02/17 11/02/17 02:40 02:59 04:45 Temperature 97.9 F Pulse Rate 44 Respiratory 16 16 Rate Blood Pressure 114/57 (mmHg) O2 Sat by Pulse 97 100 Oximetry 11/02/17 11/02/17 11/02/17 04:50 06:50 07:45 Temperature Pulse Rate Respiratory 16 16 16 Rate Blood Pressure (mmHg) O2 Sat by Pulse Oximetry 11/02/17 11/02/17 11/02/17 07:58 10:43 12:13 Temperature 97.9 F 97.8 F Pulse Rate 58 69 Respiratory 16 18 16 Rate Blood Pressure 115/67 131/71 (mmHg) O2 Sat by Pulse 100 100 Oximetry 11/02/17 11/02/17 13:15 16:39 Temperature Pulse Rate Respiratory 16 18 Rate Blood Pressure (mmHg) O2 Sat by Pulse Oximetry - Intake and Output Intake and Output: Intake & Output 10/31/17 11/01/17 11/02/17 11/03/17 06:59 06:59 06:59 06:59 Intake Total 500 3847 3081 497 Output Total 675 2520 2600 0 Balance -175 1327 481 497 Weight 155 lb Intake: IV Fluids 1501 486 257 ABX - DOXYCYCLINE 258 102 257 CLINDAMYACIN 900 MG 50 NS 93 384 lr 1100 IVPB 1146 55 ABX - CEFTRIAXONE 48 55 NS 1098 Oral 500 1200 2540 240 Output: Urine 675 2500 2600 0 Estimated Blood Loss 20 Other: Estimated Void Large Date of Last Bowel 11/02/17 Movement # Bowel Movements 0 1 Estimated Stool Amount Large # Voids 1 1 3 ADLs: Meal Record Start: 10/30/17 21: 04 Freq: Status: Active Protocol: Created 10/30/17 21:04 System (Rec: 10/30/17 21:04 System SSU-M13) Document 10/31/17 22:00 [id number] (Rec: 10/31/17 22:18 [id number] SSU-C05) Document 11/02/17 09:43 [id number] (Rec: 11/02/17 09:44 [id number] SSU-M17) Intake and Output Start: 10/30/17 21: 04 Freq: DAILY@0600,1400,2200 Status: Cancelled Protocol: Created 10/30/17 21:04 System (Rec: 10/30/17 21:04 System SSU-M13) Document 10/30/17 22:21 [id number] (Rec: 10/30/17 22:21 [id number] SSU-M18) Document 10/31/17 05:01 [id number] (Rec: 10/31/17 05:02 [id number] SSU-M18) Document 10/31/17 06:15 [id number] (Rec: 10/31/17 06:15 [id number] SSU-M13) Document 10/31/17 06:33 [id number] (Rec: 10/31/17 06:33 [id number] SSU-M18) Document 10/31/17 10:06 [id number] (Rec: 10/31/17 10:06 [id number] SSU-M18) Intake and Output Start: 10/31/17 13: 57 Freq: 06,14,2200 Status: Active Protocol: Created 10/31/17 14:02 [id number] (Rec: 10/31/17 14:02 BKG [id number]) Document 10/31/17 19:05 [id number] (Rec: 10/31/17 22:22 [id number] SSU-C05) Document 10/31/17 21:07 [id number] (Rec: 10/31/17 21:08 [id number] SSU-M14) Document 10/31/17 22:00 [id number] (Rec: 10/31/17 22:18 [id number] SSU-C05) Document 11/01/17 00:08 [id number] (Rec: 11/01/17 00:09 [id number] SSU-M18) Document 11/01/17 01:30 [id number] (Rec: 11/01/17 01:30 [id number] SSU-M18) Document 11/01/17 06:07 [id number] (Rec: 11/01/17 06:07 [id number] SSU-M18) Document 11/01/17 08:12 [id number] (Rec: 11/01/17 08:12 [id number] SSU-M18) Document 11/01/17 14:00 [id number] (Rec: 11/01/17 14:18 [id number] SSU-M18) Document 11/01/17 19:23 [id number] (Rec: 11/02/17 02:48 [id number] SSU-C12) Document 11/01/17 20:13 [id number] (Rec: 11/02/17 02:50 [id number] SSU-C12) Document 11/01/17 22:21 [id number] (Rec: 11/01/17 22:21 [id number] SSU-C19) Document 11/02/17 06:00 [id number] (Rec: 11/02/17 06:20 [id number] SSU-M17) Document 11/02/17 13:19 [id number] (Rec: 11/02/17 13:20 [id number] SSU-M17) Document 11/02/17 14:00 [id number] (Rec: 11/02/17 14:01 [id number] SSU-M17) - Physical Exam General Physical Exam Comment: No acute distress. Lying supine. Right ankle is wrapped Eye Exam: bilateral: PERRLA Head: Yes Normocephalic Throat/Oropharyx Exam: Bilateral: Normal Thyroid Function: Clinically Euthyroid Lungs and Chest: Yes: Chest Expansion Full, Chest Expansion Symetrica, Percussion Note Resonant Heart Rate and Rhythm: Regular JVP: Not Elevated [place] Beat: Non Displaced Additional Cardiovascular: Yes: [place] Beat not Displaced Abdominal Exam: Yes: Soft - Rheumotological System Joints: Single Joint Abnormality - Right ankle wrapped - Extremities Feet Sensation: Abnormal: Sensory - Neuro Psychiatric: Normal Speech: Normal Results - Results Lab Results: Laboratory Results - last 24 hr 10/31/17 10/31/17 11/01/17 12:26 12:57 04:46 B. burgdorferi (PCR) TNP TNP HIV 1&2 Antibody Nonreactive Assessment - Problem List Assessment: Patient Problems Arthritis (Acute) Hyponatremia (Acute) Plan: Septic Arthritis. Unclear source. Follow up cultures. Follow up ID recommendations. RF is negative. Will follow; HLAb27 is pending. Continue present coverage.
[2017-11-02] MEDS: cefTRIAXone(*) 2 GM in NS 0.9% 100 ML* 100 ML IVPB SCH (21:31)
[2017-11-03] MEDS: oxyCODONE/Acetamin 5/325 MG* TAB PO PRN ×5 (04:22→22:53)
[2017-11-03 06:14] LABS: ABS Basophils 0 10^3/ul (0-0.2); ABS Eosinophils 0.2 10^3/ul (0-0.6); ABS Lymphocytes 1.8 10^3/ul (1.0-4.8); ABS Monocytes 0.9 10^3/ul (0-0.8); ABS Neutrophils 4.4 10^3/ul (1.5-7.7); ABS Nucleated RBC 0 10^3/ul; Eosinophil % 2.9 % (0-6); Hematocrit 41 % (42-52); Hemoglobin 13.9 g/dl (14.0-18.0); Lymphocyte % 24.3 % (25-47); Mean Corpuscular HGB Conc 34 g/dl (31-36); Mean Corpuscular Hemoglobin 31 pg (27-31); Mean Corpuscular Volume 90 fL (80-94); Mean Platelet Volume 7.5 um3 (7.4-10.4); Nucleated Red Blood Cells % 0; Platelet Count 361 10^3/ul (150-450); Red Cell Distribution Width 13 % (10.5-15); White Blood Count 7.4 10^3/ul (3.5-10.8)
[2017-11-03] MEDS: DOXYcycline IV* 100 MG in NS 0.9% 250 ML* 250 ML IVPB SCH (06:19)
[2017-11-03] MEDS: Heparin VIAL(*) 5000 UNITS/ML VIAL (FIVE THOUSAND) SUBCUT SCH ×3 (06:23→21:18)
[2017-11-03] MEDS: Magnesium Hydroxide LIQ* 30 ML UDC PO SCH ×2 (08:37→21:20)
--- NOTE | 2017-11-03 08:37 | PN ---
Progress Note - Progress Note Date of Service: 11/03/17 SOAP: Subjective: 22 y/o POD#3 right ankle I&D by Dr. Yuen. Patient reports feeling well, increased ROM of ankle with decreased pain overall. Questions about care, ABX. VSS, afebrile overnight. Objective: General- Well appearing, NAD, AO Resting in bed comfortably MSK- RLE- DF/PF +, PT 2+, negative homans sign, dressing/ splint removed, incision c/d/i, no drainage from incision omid with minimal serousang drainage no odor, decreased erythema from marked areas. Vital Signs Temp 97.8 F 11/03/17 07:37 Pulse 49 11/03/17 07:37 Resp 20 11/03/17 11:51 BP 113/59 11/03/17 07:37 Pulse Ox 97 11/03/17 08:00 Intake & Output 11/02/17 11/03/17 11/03/17 18:59 06:59 18:59 Intake Total 1047 3241 Output Total 400 1600 Balance 647 1641 Intake: IV Fluids 257 411 ABX - CEFTRIAXONE 105 ABX - DOXYCYCLINE 257 250 NS 56 Oral 790 2830 Output: Urine 400 1600 Other: Estimated Void Large Date of Last Bowel 11/02/17 Movement # Bowel Movements 1 0 Estimated Stool Amount Large # Voids 3 Assessment: Stable: - POD#3 R ankle arthroscopic I&D FHL tendon sheath, tibiotalar joint, posterior facet talocalcaneus joint and open I&D anterior and middle facet talocalcaneus joint. - Infection posterior ankle, unclear origin and organism Plan: - DVT prophylaxis- heparin - Continue PT/ OT - CRP improving - H&H - Stable - post-op IV ABX - doxycy, ceftriaxone - Blood, R joint cultures- no growth to date. - ID consult today- Pending - Toe touch weight bearing Acetaminophen (Tylenol Tab*) 650 mg PO Q4H PRN PRN Reason: FEVER/PAIN Heparin Sodium (Porcine) (Heparin Vial(*)) 5,000 units SUBCUT Q8HR [facility] Last Admin: 11/03/17 06:23 Dose: 5,000 units Hydromorphone HCl (Dilaudid Inj*) 0.5 mg IV SLOW PU Q4H PRN PRN Reason: PAIN Last Admin: 10/31/17 02:28 Dose: 0.5 mg Sodium Chloride (Ns 0.9% 1000 Ml*) 1,000 mls @ 125 mls/hr IV PER RATE [facility] Last Admin: 10/31/17 07:34 Dose: 125 mls/hr Ceftriaxone Sodium 2 gm/ (Sodium Chloride) 100 mls @ 200 mls/hr IVPB Q24H [facility] Last Admin: 11/02/17 21:31 Dose: 200 mls/hr Doxycycline Hyclate 100 mg/ (Sodium Chloride) 250 mls @ 250 mls/hr IVPB Q12H [facility] Last Admin: 11/03/17 06:19 Dose: 250 mls/hr Magnesium Hydroxide (Milk Of Magnesia Liq*) 30 ml PO BID [facility] Last Admin: 11/03/17 08:37 Dose: Not Given Magnesium Hydroxide (Milk Of Magnesia Liq*) 30 ml PO Q6H PRN PRN Reason: constipation Morphine Sulfate (Morphine Vial*) 3 mg IV Q2H PRN PRN Reason: PAIN Last Admin: 10/31/17 21:22 Dose: 3 mg Oxycodone/Acetaminophen (Percocet 5/325 Tab*) 1 tab PO Q4H PRN PRN Reason: PAIN Last Admin: 11/03/17 09:03 Dose: 1 tab Oxycodone/Acetaminophen (Percocet 5/325 Tab*) 2 tab PO Q4H PRN PRN Reason: PAIN Last Admin: 11/03/17 04:22 Dose: 2 tab Laboratory Results - last 24 hr 11/03/17 11/03/17 05:45 05:45 WBC 7.4 RBC 4.50 Hgb 13.9 L Hct 41 L MCV 90 MCH 31 MCHC 34 RDW 13 Plt Count 361 MPV 7.5 Neut % (Auto) 59.6 Lymph % (Auto) 24.3 L [place] % (Auto) 12.7 H Eos % (Auto) 2.9 Baso % (Auto) 0.5 Absolute Neuts (auto) 4.4 Absolute Lymphs (auto) 1.8 Absolute Monos (auto) 0.9 H Absolute Eos (auto) 0.2 Absolute Basos (auto) 0 Absolute Nucleated RBC 0 Nucleated RBC % 0 C-Reactive Protein 98.70 H
--- NOTE | 2017-11-03 14:31 | PN ---
Subjective Date of Service: 11/03/17 Interval History: No overnight events, feels good. No pain, his range of motion is improving. No dysuria, other joint pain, sore throat, eye pain or vision problems, fevers. Family History: Unchanged from Admission Social History: Unchanged from Admission Past Medical History: Unchanged from Admission Objective Active Medications: Acetaminophen (Tylenol Tab*) 650 mg PO Q4H PRN PRN Reason: FEVER/PAIN Heparin Sodium (Porcine) (Heparin Vial(*)) 5,000 units SUBCUT Q8HR [facility] Last Admin: 11/03/17 14:10 Dose: 5,000 units Hydromorphone HCl (Dilaudid Inj*) 0.5 mg IV SLOW PU Q4H PRN PRN Reason: PAIN Last Admin: 10/31/17 02:28 Dose: 0.5 mg Sodium Chloride (Ns 0.9% 1000 Ml*) 1,000 mls @ 125 mls/hr IV PER RATE [facility] Last Admin: 10/31/17 07:34 Dose: 125 mls/hr Ceftriaxone Sodium 2 gm/ (Sodium Chloride) 100 mls @ 200 mls/hr IVPB Q24H [facility] Last Admin: 11/02/17 21:31 Dose: 200 mls/hr Doxycycline Hyclate 100 mg/ (Sodium Chloride) 250 mls @ 250 mls/hr IVPB Q12H [facility] Last Admin: 11/03/17 06:19 Dose: 250 mls/hr Magnesium Hydroxide (Milk Of Magnesia Liq*) 30 ml PO BID [facility] Last Admin: 11/03/17 08:37 Dose: Not Given Magnesium Hydroxide (Milk Of Magnesia Liq*) 30 ml PO Q6H PRN PRN Reason: constipation Morphine Sulfate (Morphine Vial*) 3 mg IV Q2H PRN PRN Reason: PAIN Last Admin: 10/31/17 21:22 Dose: 3 mg Oxycodone/Acetaminophen (Percocet 5/325 Tab*) 1 tab PO Q4H PRN PRN Reason: PAIN Last Admin: 11/03/17 13:14 Dose: 1 tab Oxycodone/Acetaminophen (Percocet 5/325 Tab*) 2 tab PO Q4H PRN PRN Reason: PAIN Last Admin: 11/03/17 04:22 Dose: 2 tab Vital Signs - 8 hr 11/03/17 11/03/1718 06:28 07:37 08:00 Temperature 97.8 F Pulse Rate 49 Respiratory 16 20 16 Rate Blood Pressure 113/59 (mmHg) O2 Sat by Pulse 100 97 Oximetry 11/03/17 11/03/17 11/03/17 09:03 11:51 13:14 Temperature Pulse Rate Respiratory 18 20 20 Rate Blood Pressure (mmHg) O2 Sat by Pulse Oximetry Oxygen Devices in Use Now: None Appearance: alert, well appearing young man Eyes: No Scleral Icterus Ears/Nose/Mouth/Throat: NL Teeth, Lips, Gums, - - mild pharyngeal erythema Neck: NL Appearance and Movements; NL JVP Respiratory: Symmetrical Chest Expansion and Respiratory Effort, Clear to Auscultation Cardiovascular: NL Sounds; No Murmurs; No JVD, RRR, No Edema Abdominal: NL Sounds; No Tenderness; No Distention Lymphatic: No Cervical Adenopathy Extremities: No Edema Skin: No Rash or Ulcers, - - right ankle incision clean, active range of motion 20 degrees Result Diagrams: 11/03/17 05:45 11/01/17 04:46 Additional Lab and Data: Lab Results 10/30/17 10/30/17 10/30/17 Range/Units 12:51 12:51 13:30 WBC 12.1 H (3.5-10.8) 10^3/ul RBC 4.44 (4.0-5.4) 10^6/ul Hgb 13.7 L (14.0-18.0) g/dl Hct 40 L (42-52) % MCV 91 (80-94) fL MCH 31 (27-31) pg MCHC 34 (31-36) g/dl RDW 13 (10.5-15) % Plt Count 264 (150-450) 10^3/ul MPV 7.7 (7.4-10.4) um3 Neut % (Auto) 69.5 (38-83) % Lymph % (Auto) 15.8 L (25-47) % [place] % (Auto) 13.7 H (0-7) % Eos % (Auto) 0.2 (0-6) % Baso % (Auto) 0.8 (0-2) % Absolute Neuts (auto) 8.4 H (1.5-7.7) 10^3/ul Absolute Lymphs (auto) 1.9 (1.0-4.8) 10^3/ul Absolute Monos (auto) 1.7 H (0-0.8) 10^3/ul Absolute Eos (auto) 0 (0-0.6) 10^3/ul Absolute Basos (auto) 0.1 (0-0.2) 10^3/ul Absolute Nucleated RBC 0 10^3/ul Nucleated RBC % 0 ESR 71 H (0-14) mm/Hr Sodium 139 (139-145) mmol/L Potassium 3.4 L (3.5-5.0) mmol/L Chloride 100 L (101-111) mmol/L Carbon Dioxide 29 (22-32) mmol/L Anion Gap 10 (2-11) mmol/L BUN 21 (6-24) mg/dL Creatinine 1.04 (0.67-1.17) mg/dL Est GFR ( Amer) 117.1 (>60) Est GFR (Non-Af Amer) 91.0 (>60) BUN/Creatinine Ratio 20.2 H (8-20) Glucose 95 (70-100) mg/dL Calcium 9.7 (8.6-10.3) mg/dL Total Bilirubin 0.40 (0.2-1.0) mg/dL AST 20 (13-39) U/L ALT 16 (7-52) U/L Alkaline Phosphatase 59 (34-104) U/L C-Reactive Protein 179.65 H (< 5.00) mg/L Total Protein 8.1 (6.4-8.9) g/dL Albumin 4.2 (3.2-5.2) g/dL Globulin 3.9 (2-4) g/dL Albumin/Globulin Ratio 1.1 (1-3) Fluid Source Synovial fluid Fluid Volume 4 mL Fluid Color Red Fluid Appearance Bloody Fluid WBC TNP Fluid RBC TNP Fluid Tot Cell Count 100 Fluid Neutrophils 94 % Fluid Lymphocytes 1 % Fluid Monocytes 5 % Fluid Cell Count Rvw By Fluid Crystals (None Seen) Fluid Comment Group A Strep Rapid (Negative) 10/30/17 10/30/17 Range/Units 13:30 17:35 WBC (3.5-10.8) 10^3/ul RBC (4.0-5.4) 10^6/ul Hgb (14.0-18.0) g/dl Hct (42-52) % MCV (80-94) fL MCH (27-31) pg MCHC (31-36) g/dl RDW (10.5-15) % Plt Count (150-450) 10^3/ul MPV (7.4-10.4) um3 Neut % (Auto) (38-83) % Lymph % (Auto) (25-47) % [place] % (Auto) (0-7) % Eos % (Auto) (0-6) % Baso % (Auto) (0-2) % Absolute Neuts (auto) (1.5-7.7) 10^3/ul Absolute Lymphs (auto) (1.0-4.8) 10^3/ul Absolute Monos (auto) (0-0.8) 10^3/ul Absolute Eos (auto) (0-0.6) 10^3/ul Absolute Basos (auto) (0-0.2) 10^3/ul Absolute Nucleated RBC 10^3/ul Nucleated RBC % ESR (0-14) mm/Hr Sodium (139-145) mmol/L Potassium (3.5-5.0) mmol/L Chloride (101-111) mmol/L Carbon Dioxide (22-32) mmol/L Anion Gap (2-11) mmol/L BUN (6-24) mg/dL Creatinine (0.67-1.17) mg/dL Est GFR ( Amer) (>60) Est GFR (Non-Af Amer) (>60) BUN/Creatinine Ratio (8-20) Glucose (70-100) mg/dL Calcium (8.6-10.3) mg/dL Total Bilirubin (0.2-1.0) mg/dL AST (13-39) U/L ALT (7-52) U/L Alkaline Phosphatase (34-104) U/L C-Reactive Protein (< 5.00) mg/L Total Protein (6.4-8.9) g/dL Albumin (3.2-5.2) g/dL Globulin (2-4) g/dL Albumin/Globulin Ratio (1-3) Fluid Source Fluid Volume mL Fluid Color Fluid Appearance Fluid WBC Fluid RBC Fluid Tot Cell Count Fluid Neutrophils % Fluid Lymphocytes % Fluid Monocytes % Fluid Cell Count Rvw By Fluid Crystals None seen (None Seen) Fluid Comment Group A Strep Rapid Negative (Negative) Microbiology and Other Data: Microbiology 10/31/17 12:01 Gram Stain - Final Wound - Ankle Right Assess/Plan/Problems-Billing Assessment: 22 yo man with no PMH admitted with right ankle pain and swelling, found to have pus in the joint during an OR washout, with negative cultures - Patient Problems (1) Septic arthritis Current Visit: Yes Status: Acute Comment: While the cultures are negative, these OR cultures were obtained after he was on antibiotics. Pus was reported in the OR washout, and work up is otherwise negative. He did have some history suggestive of a reactive arthritis, like left wrist pain and a sore throat prior to presentation, however with history of pus and his septic general presentation at admission, I think treating as septic arthritis is appropriate. He is currently on doxy and ceftriaxone; ID to see today. Plan for picc prior to DC.
[2017-11-03] MEDS: Linezolid TAB* 600 MG PO SCH (18:38)
--- NOTE | 2017-11-03 19:32 | PN ---
Subjective - Subjective Date of Service: 11/03/17 - chief complaint : septic arthritis History: Overall Mr. Muir feels better although he has noted some general puffiness of his right ankle. His wrists and other joints feels well Active Problems: Active Problems Arthritis (Acute) M19.90 Not clear if L wrist pain and erythema is related to his present R ankle arthritis. Infectious and non-infectious causes are possible, but purulent material was removed at washout. Continue ceftriaxone and doxycycline. CRP unchanged 11/01; WBC down to 8.5. Afebrile since 10/30/17 21:02 hrs through 11/02/17 12:13 hrs. Repeat CBC, CRP 11/03. Hyponatremia (Acute) E87.1 Na+ increased slightly to 137 on 11/01. Septic arthritis (Acute) While the cultures are negative, these OR cultures were obtained after he was on antibiotics. Pus was reported in the OR washout, and work up is otherwise negative. He did have some history suggestive of a reactive arthritis, like left wrist pain and a sore throat prior to presentation, however with history of pus and his septic general presentation at admission, I think treating as septic arthritis is appropriate. He is currently on doxy and ceftriaxone; ID to see today. Plan for picc prior to DC. Current Medications: Current Medications Acetaminophen (Tylenol Tab*) 650 mg PO Q4H PRN PRN Reason: FEVER/PAIN Heparin Sodium (Porcine) (Heparin Vial(*)) 5,000 units SUBCUT Q8HR [facility] Last Admin: 11/03/17 14:10 Dose: 5,000 units Hydromorphone HCl (Dilaudid Inj*) 0.5 mg IV SLOW PU Q4H PRN PRN Reason: PAIN Last Admin: 10/31/17 02:28 Dose: 0.5 mg Sodium Chloride (Ns 0.9% 1000 Ml*) 1,000 mls @ 125 mls/hr IV PER RATE [facility] Last Admin: 10/31/17 07:34 Dose: 125 mls/hr Ceftriaxone Sodium 2 gm/ (Sodium Chloride) 100 mls @ 200 mls/hr IVPB Q24H [facility] Last Admin: 11/02/17 21:31 Dose: 200 mls/hr Linezolid (Zyvox Tab*) 600 mg PO Q12H [place] Last Admin: 05/07/18 18:38 Dose: 600 mg Magnesium Hydroxide (Milk Of Magnesia Liq*) 30 ml PO BID OK Last Admin: 11/03/17 08:37 Dose: Not Given Magnesium Hydroxide (Milk Of Magnesia Liq*) 30 ml PO Q6H PRN PRN Reason: constipation Morphine Sulfate (Morphine Vial*) 3 mg IV Q2H PRN PRN Reason: PAIN Last Admin: 10/31/17 21:22 Dose: 3 mg Oxycodone/Acetaminophen (Percocet 5/325 Tab*) 1 tab PO Q4H PRN PRN Reason: PAIN Last Admin: 11/03/17 18:46 Dose: 1 tab Oxycodone/Acetaminophen (Percocet 5/325 Tab*) 2 tab PO Q4H PRN PRN Reason: PAIN Last Admin: 11/03/17 04:22 Dose: 2 tab - Review of Systems Constitutional Symptoms: No: Weight Gain, Fever, Night Sweats Dermatology: Normal: No HEENT: No Normal Eyes: Positive: Normal Thyroid: Positive: Normal Pulmonary: Positive: Normal Cardiology: Positive: Normal Gastroenterology: Positive: Normal Musculoskeletal: Positive: Joint Stiffness Endocrinology: Positive: Normal Psychiatry: Positive: Normal Home Medications: Home Medications Medication Instructions Recorded Confirmed Type Isotretinoin [Myorisan] 30 mg PO BID 10/29/17 10/30/17 History Allergies: Allergies Allergy/AdvReac Type Severity Reaction Status Date / Time Penicillins Allergy Rash Verified 10/31/17 10:08 Objective - Vital Signs Vital Signs: Vital Signs 11/02/17 11/02/17 11/02/17 19:48 20:32 20:48 Temperature 98.5 F Pulse Rate 70 Respiratory 16 16 16 Rate Blood Pressure 120/72 (mmHg) O2 Sat by Pulse 98 Oximetry 11/02/17 11/02/17 11/03/17 22:33 23:44 03:56 Temperature 97.4 F 97.6 F Pulse Rate 57 52 Respiratory 16 16 16 Rate Blood Pressure 118/52 115/54 (mmHg) O2 Sat by Pulse 97 100 Oximetry 11/03/17 11/03/17 11/03/17 04:22 04:41 06:28 Temperature Pulse Rate Respiratory 16 16 Rate Blood Pressure (mmHg) O2 Sat by Pulse 97 Oximetry 11/03/17 11/03/17 11/03/17 07:37 08:00 09:03 Temperature 97.8 F Pulse Rate 49 Respiratory 20 16 18 Rate Blood Pressure 113/59 (mmHg) O2 Sat by Pulse 100 97 Oximetry 11/03/17 11/03/17 11/03/17 11:39 11:51 13:14 Temperature 98.4 F Pulse Rate 70 Respiratory 22 20 20 Rate Blood Pressure 140/74 (mmHg) O2 Sat by Pulse 99 Oximetry 11/03/17 11/03/17 11/03/17 15:09 16:00 16:08 Temperature Pulse Rate 61 Respiratory 16 20 Rate Blood Pressure 117/78 (mmHg) O2 Sat by Pulse 97 97 Oximetry 11/03/17 18:46 Temperature Pulse Rate Respiratory 18 Rate Blood Pressure (mmHg) O2 Sat by Pulse Oximetry - Intake and Output Intake and Output: Intake & Output 11/01/17 11/02/17 11/03/17 11/04/17 06:59 06:59 06:59 06:59 Intake Total 3847 3081 4288 1000 Output Total 2520 2600 2000 300 Balance 1154 092 9492 700 Intake: IV Fluids 1501 486 668 ABX - CEFTRIAXONE 105 ABX - DOXYCYCLINE 258 102 507 CLINDAMYACIN 900 MG 50 NS 93 384 56 lr 1100 IVPB 1146 55 ABX - CEFTRIAXONE 48 55 NS 1098 Oral 1200 2540 3620 1000 Output: Urine 2500 2600 2000 300 Estimated Blood Loss 20 Other: Estimated Void Large Medium Date of Last Bowel 11/02/17 Movement # Bowel Movements 0 0 Estimated Stool Amount Large # Voids 1 1 3 3 ADLs: Meal Record Start: 10/30/17 21: 04 Freq: Status: Active Protocol: Created 10/30/17 21:04 System (Rec: 10/30/17 21:04 System SSU-M13) Document 10/31/17 22:00 [id number] (Rec: 10/31/17 22:18 [id number] SSU-C05) Document 11/02/17 09:43 [id number] (Rec: 11/02/17 09:44 [id number] SSU-M17) Intake and Output Start: 10/30/17 21: 04 Freq: DAILY@0600,1400,2200 Status: Cancelled Protocol: Created 10/30/17 21:04 System (Rec: 10/30/17 21:04 System SSU-M13) Document 10/30/17 22:21 [id number] (Rec: 10/30/17 22:21 [id number] SSU-M18) Document 10/31/17 05:01 [id number] (Rec: 10/31/17 05:02 [id number] SSU-M18) Document 10/31/17 06:15 [id number] (Rec: 10/31/17 06:15 [id number] SSU-M13) Document 10/31/17 06:33 [id number] (Rec: 10/31/17 06:33 [id number] SSU-M18) Document 10/31/17 10:06 [id number] (Rec: 10/31/17 10:06 [id number] SSU-M18) Intake and Output Start: 10/31/17 13: 57 Freq: 06,14,2200 Status: Active Protocol: Created 10/31/17 14:02 [id number] (Rec: 10/31/17 14:02 BK JASMIN-[id number]) Document 10/31/17 19:05 [id number] (Rec: 10/31/17 22:22 [id number] SSU-C05) Document 10/31/17 21:07 [id number] (Rec: 10/31/17 21:08 UJP9847 SSU-M14) Document 10/31/17 22:00 [id number] (Rec: 10/31/17 22:18 DGZ2786 SSU-C05) Document 11/01/17 00:08 [id number] (Rec: 11/01/17 00:09 GAP3803 SSU-M18) Document 11/01/17 01:30 [id number] (Rec: 11/01/17 01:30 UWT3355 SSU-M18) Document 11/01/17 06:07 DWU4936 (Rec: 11/01/17 06:07 MKU3954 SSU-M18) Document 11/01/17 08:12 FXA4120 (Rec: 11/01/17 08:12 PWU8842 SSU-M18) Document 11/01/17 14:00 ZWM3216 (Rec: 11/01/17 14:18 [id number] SSU-M18) Document 11/01/17 19:23 SVD7112 (Rec: 11/02/17 02:48 ETS7475 SSU-C12) Document 11/01/17 20:13 [id number] (Rec: 11/02/17 02:50 [id number] SSU-C12) Document 11/01/17 22:21 [id number] (Rec: 11/01/17 22:21 CQA6067 SSU-C19) Document 11/02/17 06:00 [id number] (Rec: 11/02/17 06:20 [id number] SSU-M17) Document 11/02/17 13:19 OKT1079 (Rec: 11/02/17 13:20 PBM0571 SSU-M17) Document 11/02/17 14:00 SEL6242 (Rec: 11/02/17 14:01 AZG0026 SSU-M17) Document 11/02/17 14:00 FET1989 (Rec: 11/02/17 18:53 NPP3772 SSU-M16) Document 11/02/17 20:34 [id number] (Rec: 11/02/17 20:34 FPL3369 SSU-M13) Document 11/02/17 22:37 BMX0817 (Rec: 11/02/17 22:38 [id number] SSU-M18) Document 11/03/17 04:24 XOD5734 (Rec: 11/03/17 04:25 TED1243 SSU-M06) Document 11/03/17 06:00 WTQ8563 (Rec: 11/03/17 06:00 FCC6581 SSU-M06) Document 11/03/17 14:13 [id number] (Rec: 11/03/17 14:14 [id number] SSU-C03) - Physical Exam General Physical Exam Comment: No acute distress; sitting up Eye Exam: bilateral: PERRLA Head: Yes Normocephalic Thyroid Function: Clinically Euthyroid Lungs and Chest: Yes: Chest Expansion Full, Chest Expansion Symetrica, Percussion Note Resonant Heart Rate and Rhythm: Regular JVP: Not Elevated [place] Beat: Non Displaced Additional Cardiovascular: Yes: [place] Beat not Displaced - Rheumotological System Joints: Single Joint Abnormality - Right ankle with 2 plus synovitis, Joint Swelling - Extremities Dorsalis Pedis Pulses: Bilateral Normal Results - Results Lab Results: Laboratory Results - last 24 hr 11/01/17 11/01/17 11/03/17 04:46 04:46 05:45 WBC 7.4 RBC 4.50 Hgb 13.9 L Hct 41 L MCV 90 MCH 31 MCHC 34 RDW 13 Plt Count 361 MPV 7.5 Neut % (Auto) 59.6 Lymph % (Auto) 24.3 L [place] % (Auto) 12.7 H Eos % (Auto) 2.9 Baso % (Auto) 0.5 Absolute Neuts (auto) 4.4 Absolute Lymphs (auto) 1.8 Absolute Monos (auto) 0.9 H Absolute Eos (auto) 0.2 Absolute Basos (auto) 0 Absolute Nucleated RBC 0 Nucleated RBC % 0 C-Reactive Protein Cyclic Citrull Peptide <15.6 Anti-Nuclear Antibody 0.2 ERNIE Interpretation See comment [id number] HLA-B27 Positive HLA-B27 Interpretation See comment Anti-Streptolysin Titr 391 11/03/17 05:45 WBC RBC Hgb Hct MCV MCH MCHC RDW Plt Count MPV Neut % (Auto) Lymph % (Auto) [place] % (Auto) Eos % (Auto) Baso % (Auto) Absolute Neuts (auto) Absolute Lymphs (auto) Absolute Monos (auto) Absolute Eos (auto) Absolute Basos (auto) Absolute Nucleated RBC Nucleated RBC % C-Reactive Protein 98.70 H Cyclic Citrull Peptide Anti-Nuclear Antibody ERNIE Interpretation [id number] HLA-B27 HLA-B27 Interpretation Anti-Streptolysin Titr Assessment - Problem List Assessment: Patient Problems Arthritis (Acute) Hyponatremia (Acute) Septic arthritis (Acute) Plan: 1) Septic Arthritis: continue antibiotics. I spoke to Dr. Olivera. Although his RF and ERNIE are negative, he does have a positive HLAb27. I am not sure how this relates to his present diagnosis of a septic arthritis as he denied any SI joint or axial symptoms and so he does not seem to have ankylosing spondylitis. I would like to monitor him closely on discharge. 2) Synovitis; DNAse is negative. He has fibrosis and neovascularization on synovial biopsy. ON antibiotics for a septic joint. 3) Elevated CRP: would follow for improvement
[2017-11-03] MEDS: cefTRIAXone(*) 2 GM in NS 0.9% 100 ML* 100 ML IVPB SCH (21:14)
--- NOTE | 2017-11-04 00:29 | CONS ---
CONSULTATION REPORT: DATE OF CONSULT: 11/03/17. REQUESTING PROVIDER: Jono Pierce NP. CONSULTING SERVICE: Infectious Disease. REASON FOR CONSULTATION: Right ankle effusion. IMPRESSION: 1. Right ankle synovitis. 2. Recent left wrist pain, which has resolved. 3. Recent sore throat. 4. There is a report of purulent fluid at the time of the incision and debridement he had of his right ankle. 5. The differential diagnosis includes a septic joint due to the usual pathogens including staph or strep, less likely gram-negatives, reactive arthritis due to a distant infection, and with Lyme antibodies negative, so this is not Lyme arthritis. 6. Acne. RECOMMENDATIONS: Linezolid 600 mg by mouth twice daily and ceftriaxone 1 g a day for another 28 days to cover septic arthritis. Though the cultures have all been negative, if it is a septic process and he does not have another month of antibiotic, could lead to return of infection and progression of permanent joint damage. We did discuss, however, that there is still a possibility this is a reactive process to another infection, and that we will need to keep that consideration of mind if he is not improving steadily over time. Throat and rectal swabs for gonorrhea and chlamydia, which I sent off this afternoon. HISTORY OF PRESENT ILLNESS: This is a 22-year-old male with the right ankle pain and swelling. Developed last Friday with initially some pain and swelling and he then developed 3 to 4 days later severe pain with weightbearing. He came to the hospital on October 30. He also noted a few days before that his left wrist was tender and painful to use with some warmth and swelling, which resolved by the time he came into the hospital on the . Only other preceding infectious symptom he could recall was a sore throat about 2 weeks before the ankle became painful. He had been seen at [facility] about his ankle. He was in urgent care on October 28 where he was diagnosed with left breast tendonitis, right foot plantar fasciitis, acute pharyngitis. Because the symptoms progressed, he returned to urgent care on the and they recommended he come to the emergency room. He has his ankle aspirated. Unfortunately, cell counts could not be obtained because of some problem with the collection system. The cells were 94% neutrophils. There were no crystal seen. Because of MRI findings and his symptoms, he was taken to the operating room by Dr. Pate on the 5th, and noted he drained some pus of ankle joint and at the conclusion of his report. He also performed irrigation and debridement of tendon sheath in the ankle. He has had much improvement in his pain since the surgery with still some swelling throughout his ankle and foot, some pain with moving his ankle, but much improved. He has had no fever, chills or sweats. His C-reactive protein was 180 on admission, that is 98 today. He has not had other joints involved in the past and no other joints othere than his ankle bothering him now. PAST MEDICAL HISTORY: Acne. PAST SURGICAL HISTORY: None. MEDICATIONS: 1. Tylenol. 2. Doxycycline 100 mg IV 12 hours. 3. Dilaudid as needed. 4. Heparin subcutaneous injection. 5. Morphine as needed. 6. Ceftriaxone 2 g a day. ALLERGIES: PENICILLIN caused a rash. FAMILY HISTORY: No recurrent infections. No rheumatologic disorders. SOCIAL HISTORY: He is a [employer] freshman. He had sex with men including receptive oral and anal sex. He denies injection or other illicit drug use. REVIEW OF SYSTEMS: All negative 14-point review of systems except as noted above. PHYSICAL EXAM: Vital Signs: Temperature 37, heart rate 60, respiratory rate 20 , blood pressure 117/78, oxygen saturation 97% on room air. General: He is awake, not in distress. Neurologic: He is oriented x3. Follows all commands. HEENT: There is no conjunctival hemorrhage. Oropharynx without lesions. Neck : Supple without mass. Lymph Nodes: There is no cervical, supraclavicular, inguinal, axillary or epitrochlear lymphadenopathy. Heart: Regular rate and rhythm without murmurs, rubs or gallops. Lungs: Clear to auscultation bilaterally. Abdomen is soft, nontender, nondistended. There are bowel sounds present. Skin: There is no rash or splinter hemorrhages. Musculoskeletal: The right ankle is wrapped. In the distal foot, there is mild edema. There is mild pain with flexion and extension of the ankle and slight decreased range of motion. DIAGNOSTIC STUDIES/LAB DATA: Creatinine is 0.9, CRP 98, white blood cell count 7, hemoglobin 13, platelets 361. Rheumatoid factor negative, ERNIE negative, anti -CCP antibody negative, Lyme serology negative. HIV negative. Chlamydia and gonorrhea testing from the urine negative. Group A strep throat swab negative. Please see impressions and recommendations outlined above. Thanks for asking me to see Mr. Melendez in consultation. [id number]/[facility] #: [id number] MTDMisti
[2017-11-04] MEDS: Heparin VIAL(*) 5000 UNITS/ML VIAL (FIVE THOUSAND) SUBCUT SCH ×2 (05:46→14:17)
[2017-11-04] MEDS: Linezolid TAB* 600 MG PO SCH (05:47)
[2017-11-04] MEDS: Magnesium Hydroxide LIQ* 30 ML UDC PO SCH (08:50)
[2017-11-04] MEDS: oxyCODONE/Acetamin 5/325 MG* TAB PO PRN (12:39)
--- NOTE | 2017-11-04 14:36 | PN ---
Progress Note - Progress Note Date of Service: 11/04/17 SOAP: Subjective: []Patient seen at bedside. He is comfortable and his right ankle is not painful. Ankle continues to feel stiff and swollen, though swelling and redness have improved. Denies fever, chills, CP, SOB, nausea. Denies pain of other joints. Picc line placed today Objective: [] Vital Signs Temp 99.3 F 11/04/17 11:12 Pulse 62 11/04/17 11:12 Resp 20 11/04/17 12:39 BP 140/53 11/04/17 11:12 Pulse Ox 100 11/04/17 11:12 Intake & Output 11/03/17 11/04/17 11/04/17 18:59 06:59 18:59 Intake Total 1000 138 680 Output Total 300 1075 600 Balance 700 -937 80 Intake: IV Fluids 30 NS 30 IVPB 108 ABX - CEFTRIAXONE 108 Oral 1000 0 680 Output: Urine 300 1075 600 Other: Estimated Void Medium Large Date of Last Bowel 11/04/17 Movement # Bowel Movements 1 Estimated Stool Amount Large # Voids 3 2 General: Well appearing, NAD RLE: Dressing changed. Minimal Erythema and mild edema of the lateral ankle and foot . Incision CDI with sutures intact, well approximated wound edges and no erythema surrounding incision. Drain site without discharge or erythema. Calf supple and nontender. DF/PF intact, though limited. Sensation intact distally. 2 + DP pulse, capillary refill less than two seconds distally. Assessment: []Assessment: Stable: - POD#4 R ankle arthroscopic I&D FHL tendon sheath, tibiotalar joint, posterior facet talocalcaneus joint and open I&D anterior and middle facet talocalcaneus joint. - Infection posterior ankle, unclear origin and organism Plan: []- DVT prophylaxis- heparin - Continue PT/ OT - ABX: linezolid, ceftriaxone - Blood, R joint cultures- no growth to date. - Toe touch weight bearing - trending CRP, new data ordered - DC when antibiotic infusions/ home care as needed set up - Dry sterile dressing change daily
[2017-11-04] MEDS ORDERED: cefTRIAXone(*) 1 GM in NS 0.9% 50 ML* 50 ML IVPB ONE (15:30)
[2017-11-04 15:32] VITALS: BP 107/66
[2017-11-04 20:05] LABS: N. gonorrhoeae Source THROAT
[2017-11-04 20:06] LABS: N. gonorrhoeae Source RECTAL
--- NOTE | 2017-11-26 18:59 | DS ---
DISCHARGE SUMMARY: DATE OF ADMISSION: 10/30/17 DATE OF DISCHARGE: 11/04/17 PRINCIPAL DISCHARGE DIAGNOSES: 1. Reactive arthritis. 2. Gonorrhea. HOSPITAL COURSE BY PROBLEM: Right ankle reactive arthritis: Mr. Melendez presented to the emergency department with several days of right ankle swelling and pain. An arthrocentesis was performed in the emergency department; however , the culture and fluid was unrevealing, but it was noted that the fluid may not have come from the joint space. Regardless, he was started on broad- spectrum antibiotics with the diagnosis of septic arthritis and Orthopedic Surgery was consulted. On 11/01/17, he went to the operating room with Dr. Pate and underwent arthroscopic debridement and irrigation with partial synovectomy and arthrotomy. Purulent material was discovered at that time, so he was continued on broad-spectrum antibiotic; however, the culture from the operating room also remains negative. Infectious Diseases was consulted and agreed with treating him as septic arthritis, so he was discharged on IV ceftriaxone via a right upper extremity PICC line and p.o. linezolid. At the time of discharge, pharyngeal swabs were pending and the day after discharge returned as positive for gonorrhea. He followed up with Infectious Diseases so that his antibiotics could be narrowed and treated for reactive arthritis instead of septic arthritis. PHYSICAL EXAM AT THE TIME OF DISCHARGE: Temperature 98.2, heart rate 67, respiratory rate 18, pulse ox 100% on room air, blood pressure 107/66. General : Alert, well-appearing young man in no distress. HEENT: Pupils equal, round, and reactive to light. No nystagmus. Moist oral mucosa. No pharyngeal exudates. Neck: No cervical adenopathy. Chest: Regular rate and rhythm. No murmurs. PMI nondisplaced. Lungs: Clear bilaterally. Abdomen: Soft, nontender, nondistended. No guarding or rebound. Extremities: Right ankle incision was clean and dry with no surrounding erythema or drainage. No other rashes or ulcers. TIME SPENT: Greater than 60 minutes was spent on this discharge with over 30 minutes spent [id number] with the patient. [id number]/[facility] #: [id number] MTDD
== END 2017-11-04 17:00 | disposition home or self-care (01) | DRG 493 ==
LOC: ED 12:27 → SSU 19:11
PROVIDERS: ADMIT Hospitalist; ATTEND Internal Medicine
PROC: 0S9 Lower Joints, Drainage (ICD-10-PCS; 2017-10-31)
PROC: 0SBF4ZZ Excision of Right Ankle Joint, Percutaneous Endoscopic Approach (ICD-10-PCS; principal; 2017-10-31 11:30)
DX: M00.871 Arthritis due to other bacteria, right ankle and foot (principal); E87.1 Hypo-osmolality and hyponatremia; M65.871 Other synovitis and tenosynovitis, right ankle and foot; M19.032 Primary osteoarthritis, left wrist; Z88.0 Allergy status to penicillin; L70.9 Acne, unspecified
CPT/HCPCS: 36415; 80048; 80053; 82945; 84157; 85025; 85652; 86038; 86060; 86140; 86200; 86215; 86431; 86618; 86703; 86812; 87040; 87070; 87073; 87205; 87476; 87491; 87591; 87640; 87641; 87651; 87798; 88305; 89051; 89060; 99285; A9270-GY; A9579; C1751; J0330; J0696; J1170; J1644; J1885; J2001; J2250; J2270; J2704; J3010

== ENCOUNTER 2018-09-01 00:56 | Emergency (ER) | payer OTHER ==
[2018-09-01] MEDS ORDERED: NS 0.9% 1000 ML** 1,000 ML IV ONE (01:11)
[2018-09-01] MEDS ORDERED: Ondansetron INJ* 2 MG/ML VIAL IV ONE (01:11)
[2018-09-01] MEDS ORDERED: Lidocaine 2% VISCOUS* 15 ML UDC PO ONE (01:18)
[2018-09-01] MEDS ORDERED: Al Hydrox/Mg Hydrox/Simet LIQ* 30 ML UDC PO ONE (01:18)
[2018-09-01 01:40] LABS: ABS Basophils 0 10^3/ul (0-0.2); ABS Eosinophils 0.1 10^3/ul (0-0.6); ABS Lymphocytes 0.8 10^3/ul (1.0-4.8); ABS Monocytes 0.8 10^3/ul (0-0.8); ABS Neutrophils 8.4 10^3/ul (1.5-7.7); ABS Nucleated RBC 0 10^3/ul; Hematocrit 47 % (42-52); Hemoglobin 15.8 g/dl (14.0-18.0); Lymphocyte % 7.8 %; Mean Corpuscular HGB Conc 34 g/dl (31-36); Mean Corpuscular Hemoglobin 31 pg (27-31); Mean Corpuscular Volume 91 fL (80-94); Mean Platelet Volume 8.7 fL (7.4-10.4); Nucleated Red Blood Cells % 0; Platelet Count 222 10^3/ul (150-450); Red Blood Count 5.14 10^6/ul (4.00-5.40); Red Cell Distribution Width 13 % (10.5-15); White Blood Count 10.1 10^3/ul (3.5-10.8)
[2018-09-01 01:51] LABS: Albumin 4.9 g/dL (3.2-5.2); Albumin/Globulin Ratio 1.7 (1-3); BUN/Creatinine Ratio 19.5 (8-20); C Reactive Protein 2.75 mg/L (<8.01); Calcium 9.7 mg/dL (8.6-10.3); EGFR African American 95.2 (>60); EGFR Non-African American 78.7 (>60); Globulin 2.9 g/dL (2-4); Potassium 3.2 mmol/L (3.5-5.0); Total Bilirubin 0.7 mg/dL (0.2-1.0); Total Protein 7.8 g/dL (6.4-8.9)
[2018-09-01] MEDS ORDERED: Pantoprazole TAB * 40 MG TAB PO ONE (01:53)
[2018-09-01] MEDS ORDERED: Metoclopramide IV* 5 MG/ML 2 ML VIAL IV ONE (01:53)
--- NOTE | 2018-09-01 01:58 | ED ---
Abdominal Pain/Male - HPI Summary HPI Summary: Patient complains of sudden onset left upper quadrant pain, nausea vomiting 5, chills starting at 8 PM tonight. Active pain, rated 10/10, described as sharp, constant, progressive. Denies fever, cough, sore throat, CP, SOB, diarrhea, change in urine, change in BM, testicular or penis symptoms. Medical history is none. Abdominal surgical surgical history is none. - History of Current Complaint Chief Complaint: EDAbdPain Stated Complaint: ABD PAIN,VOMITING Time Seen by Provider: 09/01/18 01:10 Hx Obtained From: Patient Onset/Duration: Sudden Onset Timing: Constant Severity Initially: Severe Severity Currently: Severe Pain Intensity: 4 Pain Scale Used: 0-10 Numeric Location: Discrete At: LUQ Radiates: No Character: Sharp, Burning Aggravating Factor(s): Nothing Alleviating Factor(s): Nothing Associated Signs And Symptoms: Positive: Negative - Allergies/Home Medications Allergies/Adverse Reactions: Allergies Allergy/AdvReac Type Severity Reaction Status Date / Time Penicillins Allergy Rash Verified 09/01/18 01:03 PMH/Surg Hx/FS Hx/Imm Hx Endocrine/Hematology History: Denies: Hx Anticoagulant Therapy Cardiovascular History: Denies: Hx Pacemaker/ICD History: Denies: Hx Dialysis Sensory History: Denies: Hx Contacts or Glasses, Hx Deafness, Hx Hearing Aid Opthamlomology History: Denies: Hx Contacts or Glasses EENT History: Denies: Hx Deafness Neurological History: Denies: Hx Dementia Psychiatric History: Denies: Hx Panic Disorder Infectious Disease History: No Infectious Disease History: Denies: Traveled Outside the [place] in Last 30 Days - Family History Known Family History: Negative: Hypertension - Social History Alcohol Use: Occasionally Hx Substance Use: No Substance Use Type: Reports: Marijuana Substance Use Comment - Amount & Last Used: Reports smoking marijuana once every couple weeks Hx Tobacco Use: No Smoking Status (MU): Never Smoked Tobacco Review of Systems Constitutional: Negative Eyes: Negative ENT: Negative Cardiovascular: Negative Respiratory: Negative Positive: Abdominal Pain, Vomiting, Nausea Genitourinary: Negative Musculoskeletal: Negative Skin: Negative Neurological: Negative Psychological: Normal All Other Systems Reviewed And Are Negative: Yes Physical Exam - Summary Physical Exam Summary: Mild tenderness to palpation of left upper quadrant. Abdominal exam was unremarkable. Lung sounds clear to auscultation bilaterally. Triage Information Reviewed: Yes Vital Signs On Initial Exam: Initial Vitals Temp Pulse Resp BP Pulse Ox 98.4 F 101 18 140/64 99 09/01/18 01:00 09/01/18 01:00 09/01/18 01:00 09/01/18 01:00 09/01/18 01:00 Vital Signs Reviewed: Yes Appearance: Positive: Well-Appearing Skin: Positive: Warm Head/Face: Positive: Normal Head/Face Inspection Eyes: Positive: Normal ENT: Positive: Normal ENT inspection Neck: Positive: Supple Respiratory/Lung Sounds: Positive: Clear to Auscultation Cardiovascular: Positive: Normal Abdomen Description: Positive: Other: Musculoskeletal: Positive: Normal Neurological: Positive: Normal Psychiatric: Positive: Normal AVPU Assessment: Alert - Organ Coma Scale Best Eye Response: 4 - Spontaneous Best Motor Response: 6 - Obeys Commands Best Verbal Response: 5 - Oriented Coma Scale Total: 15 Diagnostics - Vital Signs Vital Signs Temp Pulse Resp BP Pulse Ox 09/01/18 01:00 98.4 F 101 18 140/64 99 - Laboratory Lab Results: Lab Results 09/01/18 09/01/18 Range/Units 01:23 01:23 WBC 10.1 (3.5-10.8) 10^3/ul RBC 5.14 (4.00-5.40) 10^6/ul Hgb 15.8 (14.0-18.0) g/dl Hct 47 (42-52) % MCV 91 (80-94) fL MCH 31 (27-31) pg MCHC 34 (31-36) g/dl RDW 13 (10.5-15) % Plt Count 222 (150-450) 10^3/ul MPV 8.7 (7.4-10.4) fL Neut % (Auto) 83.5 % Lymph % (Auto) 7.8 % [place] % (Auto) 7.4 % Eos % (Auto) 1.0 % Baso % (Auto) 0.3 % Absolute Neuts (auto) 8.4 H (1.5-7.7) 10^3/ul Absolute Lymphs (auto) 0.8 L (1.0-4.8) 10^3/ul Absolute Monos (auto) 0.8 (0-0.8) 10^3/ul Absolute Eos (auto) 0.1 (0-0.6) 10^3/ul Absolute Basos (auto) 0 (0-0.2) 10^3/ul Absolute Nucleated RBC 0 10^3/ul Nucleated RBC % 0 Sodium 139 (135-145) mmol/L Potassium 3.2 L (3.5-5.0) mmol/L Chloride 100 L (101-111) mmol/L Carbon Dioxide 28 (22-32) mmol/L Anion Gap 11 (2-11) mmol/L BUN 23 (6-24) mg/dL Creatinine 1.18 H (0.67-1.17) mg/dL Est GFR ( Amer) 95.2 (>60) Est GFR (Non-Af Amer) 78.7 (>60) BUN/Creatinine Ratio 19.5 (8-20) Glucose 126 H (70-100) mg/dL Calcium 9.7 (8.6-10.3) mg/dL Total Bilirubin 0.70 (0.2-1.0) mg/dL AST 33 (13-39) U/L ALT 28 (7-52) U/L Alkaline Phosphatase 51 (34-104) U/L C-Reactive Protein 2.75 (<8.01) mg/L Total Protein 7.8 (6.4-8.9) g/dL Albumin 4.9 (3.2-5.2) g/dL Globulin 2.9 (2-4) g/dL Albumin/Globulin Ratio 1.7 (1-3) Lipase 16 (11.0-82.0) U/L Result Diagrams: 09/01/18 01:23 09/01/18 01:23 Lab Statement: Any lab studies that have been ordered have been reviewed, and results considered in the medical decision making process. Abdominal Pain Male Course/Dx - Course Course Of Treatment: Patient complains of sudden onset left upper quadrant pain , nausea vomiting 5, chills starting at 8 PM tonight. Active pain, rated 10/10 , described as sharp, constant, progressive. Denies fever, cough, sore throat, CP, SOB, diarrhea, change in urine, change in BM, testicular or penis symptoms. Medical history is none. Abdominal surgical surgical history is none. Physical exam:Mild tenderness to palpation of left upper quadrant. Abdominal exam was unremarkable. Lung sounds clear to auscultation bilaterally. Vital signs within normal limits. Labs unremarkable. Symptoms improved with GI cocktail and Reglan. Diagnosis gastritis. Rx for omeprazole, Zofran, viscous lidocaine. Follow-up with GI if symptoms persist. Return to the ED for any new or worsening symptoms. Patient understands and approves plan. - Diagnoses Provider Diagnoses: Gastritis Discharge - Sign-Out/Discharge Documenting (check all that apply): Patient Departure Patient Received Moderate/Deep Sedation with Procedure: No - Discharge Plan Condition: Stable Disposition: HOME Prescriptions: Lidocaine 2% VISCOUS* [Xylocaine 2% Viscous*] 15 ml PO Q6H PRN #1 btl PRN Reason: Pain Omeprazole 20 mg PO DAILY 30 Days #30 capsule. Ondansetron ODT TAB* [Zofran 4 MG Odt TAB*] 4 mg PO Q8H PRN 4 Days #14 tab.odt PRN Reason: Nausea Patient Education Materials: Gastritis (ED) Referrals: [facility] - Audie DAVIDSON [Primary Care Provider] - Juvenal Little MD [Medical Doctor] - Additional Instructions: Take omeprazole daily. Use lidocaine for breakthrough pain. Take Zofran as directed for nausea. Follow-up with primary care. If symptoms persist follow- up with Gastroenterology Dr. Little. Return to the ED for any new or worsening symptoms - Billing Disposition and Condition Condition: STABLE Disposition: Home
[2018-09-01] MEDS ORDERED: Potassium Chlor TAB* 20 MEQ TAB.ER PO ONE (02:02)
[2018-09-01 03:23] VITALS: BP 121/61
== END 2018-09-01 02:20 | disposition home or self-care (01) ==
LOC: ED 00:56
DX: K29.70 Gastritis, unspecified, without bleeding (principal); Z88.0 Allergy status to penicillin
CPT/HCPCS: 36415; 80053; 83690; 85025; 86140; 96374; 96375; 99283; A9270-GY; J2405; J2765